=== PATIENT | female | born 1955 ===

== ENCOUNTER → 2022-01-14 14:37 | Outpatient (BNVA) | payer MEDICARE, OTHER, SELFPAY | PROVIDERS: PCP Internal Medicine; Visit Provider Psychiatry & Neurology Neurology | DX: Z13.89 Encounter for screening for other disorder (principal) | CPT/HCPCS: Q3014 ==

== ENCOUNTER 2023-08-08 15:09 | Emergency (ER) | payer OTHER, SELFPAY ==
--- NOTE | ~2023-08-08 | US_ITS ---
EXAMINATION: US VENOUS ULTRASOUND WITH DOPPLER LOWER EXTREMITY, BILATERAL CLINICAL INFORMATION: Edema COMPARISON: None available. TECHNIQUE: Ultrasound of the deep veins is performed from the hip to the calf with compression sonography and color and pulse Doppler assessment. Spectral analysis with color-flow imaging is performed. FINDINGS: RIGHT: There is normal venous compression and respiratory variation and augmented flow. The visualized common femoral vein, superficial femoral vein, profunda femoral vein, popliteal vein, and the trifurcation region shows no evidence of deep venous thrombosis. The peroneal vein was not identified. A 3.4 x 0.8 x 2.4 center cyst in the popliteal fossa. Subcutaneous edema. LEFT: There is normal venous compression and respiratory variation and augmented flow. The visualized common femoral vein, superficial femoral vein, profunda femoral vein, popliteal vein, and the trifurcation region shows no evidence of deep venous thrombosis. The peroneal vein was not identified sonographically. A 3.9 x 0.7 x 2.2 cm cyst in the left popliteal fossa which may reflect a Guajardo's cyst. Subcutaneous edema. If the patient's symptoms persist, followup ultrasound in 5 days 7 days might be of value to exclude proximal propagation from a non-visualized calf vein. US/US venous duplex LE BI IMPRESSION: 1. No DVT demonstrated in the bilateral lower extremities, however the peroneal veins were not identified sonographically limiting assessment. 2. Bilateral popliteal fossa cysts measuring 3.4 cm on the right and 3.9 cm on the left which may reflect a Guajardo's cyst. 3. Subcutaneous edema.
--- NOTE | ~2023-08-08 | XR_ITS ---
EXAMINATION: XR CHEST CLINICAL INFORMATION: Shortness of breath COMPARISON: None available. TECHNIQUE: Frontal view of the chest was obtained. FINDINGS: vascularity. LUNGS: Lungs are clear. No pneumothorax is seen. BONES: Bony skeleton is intact. XR/XR chest 1V IMPRESSION: Normal chest x-ray.
[2023-08-08 15:28] VITALS: BP 153/66; PULSE 108; RESP 20; TEMP 36.4; O2SAT 99; BMI 40.6
--- NOTE | 2023-08-08 15:28 | ED.GENADULT ---
HPI - General Adult General Chief complaint: Extremity Problem Stated complaint: bilateral leg swelling and redness Time Seen by Provider: 08/08/23 16:59 Source: patient Mode of arrival: ambulatory History of Present Illness HPI narrative: 67-year-old female who has a history of diabetes, COPD, GEORGETTE and recently diagnosed with RA and started on methotrexate last week comes into the emergency room at the request of her primary care provider due to abnormal labs. Patient denies any shortness of breath, she denies any chest pain/discomfort/palpitations, she denies any nausea or vomiting but does describe some unexplained weight loss but otherwise states that she has been having normal bowel movements and denies any dysuria. She states that her bilateral lower extremities have progressively worsened over the past 2 months. She is aware that she had anemia starting in June but denies blood in her stool, she denies vomiting any blood. Related Data Home Medications Medication Instructions Recorded Confirmed albuterol sulfate 90 mcg/actuation 0 mcg inhalation 01/14/22 04/08/22 aerosol inhaler cholecalciferol (vitamin D3) 50 50 mcg PO DAILY 01/14/22 04/08/22 mcg (2,000 unit) capsule levothyroxine 137 mcg tablet 137 mcg PO DAILY 01/14/22 04/08/22 lisinopril 10 1 tab PO DAILY 01/14/22 04/08/22 mg-hydrochlorothiazide 12.5 mg tablet metformin 500 mg tablet 500 mg PO DAILY 01/14/22 04/08/22 pravastatin 40 mg tablet 40 mg PO DAILY 01/14/22 04/08/22 Previous Rx's Medication Instructions Recorded topiramate 50 mg tablet 50 mg PO BID 90 days #180 tabs 04/08/22 furosemide 20 mg tablet (Lasix) 20 mg PO Q OTHER DAY #10 tabs 08/08/23 Allergies Allergy/AdvReac Type Severity Reaction Status Date / Time codeine Allergy Severe Anaphylaxis Verified 04/08/22 08:42 ibuprofen AdvReac Mild Hives Verified 04/08/22 08:42 tramadol AdvReac Mild Hives Verified 04/08/22 08:42 Review of Systems Review of Systems: Pertinent positives and negatives as stated in HPI PMF Past Medical History Source: nursing notes reviewed Medical History Obstructive sleep apnea of adult Thyroid activity decreased Cervical spondylosis Migraine headache without aura Diabetes COPD (chronic obstructive pulmonary disease) Surgical History H/O: hysterectomy Social History Social History Alcohol intake: never Patient Tobacco Use Status: Former Tobacco user Quit Date: 2021 Smoked in Last 30 Days: Yes Use of substances other than those prescribed or required for medical reasons: No Advance Directives: No Advance Directives Information Provided: Yes Physical Exam ED Vital Signs: Vital Signs - 24 hr 08/08/23 15:28 08/08/23 19:30 Temperature 97.5 F 98.5 F Pulse Rate 108 H 95 Respiratory Rate 20 20 Blood Pressure 153/66 H 131/64 Pulse Oximetry 99 100 Oxygen Delivery Method Room Air Room Air BMI result Body Mass Index 40.6 VITAL SIGNS: Reviewed. GENERAL: Elevated BMI, Well developed, well nourished, in no acute distress. HEAD: Normocephalic/atraumatic EYES: PERRLA, EOMI EARS: Ext canals without abnormality, TMs non-bulging and non-erythematous NOSE: Nares patent bilateral OROPHARYNX: no oral lesions noted, posterior pharynx clear NECK: Supple, no adenopathy LUNGS: Bibasilar rales without tachypnea, good inspiratory effort. SpO2<99> CARDIOVASCULAR: Regular rate and rhythm without noted murmurs, no JVD but significant pitting edema up to the knees ABDOMEN: Soft, non-tender, non-distended with bowel sounds. MUSCULOSKELETAL: No tenderness, deformities, or effusions noted on gross inspection. EXTREMITIES: No cyanosis, clubbing or edema. LEFT ANKLE: Small wound noted to left medial malleolus without purulence drainage suspect may be chronic in nature SKIN: Inspection of the skin reveals no rashes NEUROLOGIC: Alert and oriented x 4. Strength and sensation to light touch were grossly intact x 4. Course Course Course Narrative: RME performed by Vicki Prabhakar PA-C. Patient is a 67 year old assigned female at presenting to the emergency department with bilateral lower leg swelling and redness. Labs ordered. Patient placed back in the waiting room pending room availability and results. Medications Administered Discontinued Medications Generic Name Dose Route Start Last Admin Trade Name Freq PRN Reason Stop Dose Admin Acetaminophen 975 mg 08/08/23 19:42 08/08/23 20:15 Acetaminophen 325 Mg Tablet PO 08/08/23 19:43 Not Given ONCE ONE Medical Decision Making Medical Decision Making [facility] Narrative: 1736: 67-year-old female with history and clinical presentation that I suspect is related to an driven by underlying anemia which is likely increased cardiac work resulting in fluid overload but patient does not describe any increase in shortness of breath nor does she describe any chest pain. EKG is abnormal with marked ST abnormalities throughout anterolateral leads consistent with LVH especially when patient denies any chest pain/discomfort/palpitations. Do not suspect that appearance of bilateral lower extremities is secondary to methotrexate use as patient reports that she was experiencing this prior to initiation of the methotrexate. In addition, patient also had anemia prior to initiation of the methotrexate. I reviewed all investigations and hematologic indices are significant for a leukocytosis and left shift but patient is afebrile and is not endorsing any symptoms to suggest an infectious etiology in suspect this may be a stress response or related with recent initiation of methotrexate. Patient is also noted to be normocytic anemia, this could be of chronic disease. Coagulation studies are within normal limits. Chemistry indices demonstrate an IRIS and otherwise there are no electrolyte or liver enzyme derangements. However, high sensitivity troponin is noted to be elevated at 35.2 but suspect this may be demand related due to underlying anemia as patient denies any symptoms of chest pain/discomfort/palpitations. In addition, BNP is noted to be mildly elevated which is consistent with clinical findings of bibasilar rales as well as bilateral lower extremity edema but patient is neither tachypneic nor is she hypoxic. CRP and ESR are elevated but again this is not out the around the possibility given her recent diagnosis of RA with initiation of methotrexate. We will repeat the high sensitivity troponin and I will perform a guaiac stool and if positive suggestive alternative etiology of anemia than ACD. Chest x-ray negative for infiltrate or evidence of venous congestion. Venous duplex is negative for evidence to suggest DVT. Broth Setter- Carlos Enrique for MARÍA, guaiac negative 2032: On further investigation via the [employer] system it appears that patient's chemistry values are consistent with her known CKD and patient has normocytic anemia consistent with anemia of chronic disease. 2208: On evaluation of serial troponins they are essentially flat in comparison arguing against any evidence of NSTEMI/ subendocardial injury . My interpretation is that these changes are likely chronic in nature and patient is otherwise discharged home, she did have Billy wraps applied to bilateral lower extremities to help with pain control and stasis. Will also discharge patient on a small dose of Lasix to bridge her until she follows up with her primary care doctor. Patient is neither hypoxic, nor is she tachypneic and vital signs are otherwise stable. She is free dyspnea or chest pain. Differential Diagnosis Differential Diagnoses: The differential diagnosis associated with the presentation includes Please see the discussion above Admission/Observation Consideration of admission/observation: Escalation of care including admission/observation considered Please see the discussion above Lab Data MDM Lab Attestation statement: I reviewed the patient's lab results. Please see the discussion above 08/08/23 16:14 08/08/23 16:14 Labs: Lab Results 08/08/23 08/08/23 08/08/23 Range/Units 16:14 18:14 19:25 WBC 11.3 H (4.8-10.8) X10*3/uL RBC 3.02 L (4.20-5.50) X10*6/uL Hgb 7.8 L (12.0-16.0) g/dl Hct 25.2 L (37.0-47.0) % MCV 83.4 (80.0-98.0) fL MCH 25.8 L (27.0-33.0) pg MCHC 31.0 (31.0-35.0) g/dl RDW 14.4 (11.0-16.0) % Plt Count 324 (160-400) X10*3/uL MPV 9.6 (9.4-12.3) fL Immature Gran % (Auto) 0.6 H (0.0-0.4) % Neut % (Auto) 83.0 H (45-73) % Lymph % (Auto) 14.4 L (20-40) % [place] % (Auto) 1.0 L (2-11) % Eos % (Auto) 0.9 (0-4) % Baso % (Auto) 0.1 (0-2) % Lymph # (Auto) 1.6 (1.2-4.9) X10*3/uL [place] # (Auto) 0.1 (0.1-1.2) X10*3/uL Eos # (Auto) 0.1 (0.0-0.4) X10*3/uL Baso # (Auto) 0.0 (0.0-0.2) X10*3/uL Abs Immat Gran (auto) 0.07 H (0.00-0.03) X10*3/uL Absolute Neuts (auto) 9.3 H (2.0-8.3) x10*3/uL Absolute Nucleated RBC 0.000 (0.0-0.012) X10*3/uL Nucleated RBC % (auto) 0.0 (0.0-0.2) /100WBC ESR 117 H (0-20) MM/HR PT 11.8 (11.1-13.3) SEC INR 1.0 (0.9-1.1) Sodium 134 L (135-145) mmol/L Potassium 3.5 (3.3-5.1) mmol/L Chloride 101 (96-108) mmol/L Carbon Dioxide 26 (22-29) mmol/L Anion Gap 11 L (12-20) BUN 30 H (9-16) mg/dL Creatinine 1.78 H (0.5-1.4) mg/dL Estim Creat Clear Calc 35.3 Estimated GFR 28 Random Glucose 120 H (60-115) mg/dL Lactic Acid 1.6 (0.5-2.0) mmol/L Calcium 9.4 (8.4-10.2) mg/dL Magnesium 2.2 (1.6-2.6) mg/dL Total Bilirubin 0.2 (0.0-1.0) mg/dL AST 13 (5-31) U/L ALT 15 (0-31) U/L Alkaline Phosphatase 97 (39-117) U/L Troponin I High Sens 35.2 H (<3.5-17.0) ng/L C-Reactive Protein 14.88 H (< or = 0.50) mg/dL B-Natriuretic Peptide 135 H (<100) pg/mL Total Protein 7.3 (6.5-8.0) g/dL Albumin 3.5 (3.5-5.0) g/dL Urine Color Yellow Urine Appearance Cloudy Urine pH 5.0 (5.0-9.0) Ur Specific [place] 1.015 (1.005-1.025) Urine Protein Negative (Neg-Trace) mg/dL Urine Glucose (UA) Negative (Negative) mg/dL Urine Ketones Negative (Negative) mg/dL Urine Blood Negative (Negative) Urine Nitrite Negative (Negative) Ur Leukocyte Esterase Trace H (Negative) Urine RBC 0-2 (0-2) /HPF Urine WBC 11-20 H (0-5) /HPF Ur Squamous Epith Cells 11-20 (0-2) /HPF Urine Bacteria Trace (None Seen) Hyaline Casts 6-10 (0-2) /LPF Stool Occult Blood (NEGATIVE) Influenza Type A (PCR) NEGATIVE (Negative) Influenza Type B (PCR) NEGATIVE (Negative) RSV RNA Qual (PCR) NEGATIVE (Negative) SARS-CoV-2 RNA (RT-PCR) NEGATIVE (Negative) Blood Type A Positive Antibody Screen NEGATIVE 08/08/23 08/08/23 Range/Units 20:02 21:17 WBC (4.8-10.8) X10*3/uL RBC (4.20-5.50) X10*6/uL Hgb (12.0-16.0) g/dl Hct (37.0-47.0) % MCV (80.0-98.0) fL MCH (27.0-33.0) pg MCHC (31.0-35.0) g/dl RDW (11.0-16.0) % Plt Count (160-400) X10*3/uL MPV (9.4-12.3) fL Immature Gran % (Auto) (0.0-0.4) % Neut % (Auto) (45-73) % Lymph % (Auto) (20-40) % [place] % (Auto) (2-11) % Eos % (Auto) (0-4) % Baso % (Auto) (0-2) % Lymph # (Auto) (1.2-4.9) X10*3/uL [place] # (Auto) (0.1-1.2) X10*3/uL Eos # (Auto) (0.0-0.4) X10*3/uL Baso # (Auto) (0.0-0.2) X10*3/uL Abs Immat Gran (auto) (0.00-0.03) X10*3/uL Absolute Neuts (auto) (2.0-8.3) x10*3/uL Absolute Nucleated RBC (0.0-0.012) X10*3/uL Nucleated RBC % (auto) (0.0-0.2) /100WBC ESR (0-20) MM/HR PT (11.1-13.3) SEC INR (0.9-1.1) Sodium (135-145) mmol/L Potassium (3.3-5.1) mmol/L Chloride (96-108) mmol/L Carbon Dioxide (22-29) mmol/L Anion Gap (12-20) BUN (9-16) mg/dL Creatinine (0.5-1.4) mg/dL Estim Creat Clear Calc Estimated GFR Random Glucose (60-115) mg/dL Lactic Acid (0.5-2.0) mmol/L Calcium (8.4-10.2) mg/dL Magnesium (1.6-2.6) mg/dL Total Bilirubin (0.0-1.0) mg/dL AST (5-31) U/L ALT (0-31) U/L Alkaline Phosphatase (39-117) U/L Troponin I High Sens 37.2 H (<3.5-17.0) ng/L C-Reactive Protein (< or = 0.50) mg/dL B-Natriuretic Peptide (<100) pg/mL Total Protein (6.5-8.0) g/dL Albumin (3.5-5.0) g/dL Urine Color Urine Appearance Urine pH (5.0-9.0) Ur Specific [place] (1.005-1.025) Urine Protein (Neg-Trace) mg/dL Urine Glucose (UA) (Negative) mg/dL Urine Ketones (Negative) mg/dL Urine Blood (Negative) Urine Nitrite (Negative) Ur Leukocyte Esterase (Negative) Urine RBC (0-2) /HPF Urine WBC (0-5) /HPF Ur Squamous Epith Cells (0-2) /HPF Urine Bacteria (None Seen) Hyaline Casts (0-2) /LPF Stool Occult Blood NEGATIVE (NEGATIVE) Influenza Type A (PCR) (Negative) Influenza Type B (PCR) (Negative) RSV RNA Qual (PCR) (Negative) SARS-CoV-2 RNA (RT-PCR) (Negative) Blood Type Antibody Screen Independent Interpretation I performed an independent interpretation of an: EKG Interpretation: Normal sinus rhythm, HR-93, significant ST depressions throughout anterolateral leads that is otherwise asymptomatic, no STEMI, ME/QRS/QTC is within normal limits. Radiology Impression Discussion of test interpretation with radiology: I have reviewed the radiologist's reading. Radiologist Impression: Please see the discussion above Chronic Conditions Patient?s care impacted by: Diabetes Critical Care Time Critical Care Time Critical Care Time: Yes Total Critical Care Time: 60 Attestation: I personally attest to this time spent taking care of the patient. Discharge Plan Discharge Clinical Impression: Bilateral lower extremity edema, Anemia in chronic kidney disease (CKD), Rheumatoid arthritis, CHF (congestive heart failure) Patient Disposition: Home, Self-Care Instructions: Heart Failure (ED), Chronic Kidney Disease (ED), Leg Edema (ED) Additional Instructions: 1. Your workup today essentially demonstrated stable labs when compared to prior values. You yourself have been otherwise asymptomatic with the exception of your recent diagnosis of rheumatoid arthritis for which you have been started on a medication that does not appear to be adversely affecting you. 2. Please follow-up with your primary care doctor by calling the office 1st thing in the morning and setting up an appointment for re-evaluation and further outpatient management. Return to the ER if you are experiencing any worsening of your symptoms, I will be prescribing you a small dose of Lasix (furosemide) which will help in the removal of the fluid from your lower extremities. Prescriptions: New furosemide [Lasix] 20 mg tablet 20 mg PO Q OTHER DAY Qty: 10 0RF No Action albuterol sulfate 90 mcg/actuation HFA aerosol inhaler 0 mcg inhalation metformin 500 mg tablet 500 mg PO DAILY lisinopril-hydrochlorothiazide 10-12.5 mg tablet 1 tab PO DAILY pravastatin 40 mg tablet 40 mg PO DAILY levothyroxine 137 mcg tablet 137 mcg PO DAILY cholecalciferol (vitamin D3) 50 mcg (2,000 unit) capsule 50 mcg PO DAILY topiramate 50 mg tablet 50 mg PO BID 90 Days Qty: 180 6RF Referrals: Angel Goldsmith MD [Primary Care Provider] -
--- NOTE | 2023-08-08 15:29 | ECG_ITS ---
Test Reason : LEG SWELLING Blood Pressure : / mmHG Vent. Rate : 093 BPM Atrial Rate : 093 BPM P-R Int : 166 ms QRS Dur : 098 ms QT Int : 358 ms P-R-T Axes : 052 010 168 degrees QTc Int : 445 ms Normal sinus rhythm Left ventricular hypertrophy with repolarization abnormality ( Juan Manuel product ) Marked ST abnormality, possible anterior subendocardial injury Abnormal ECG No previous ECGs available Referred By: Vicki Prabhakar Electronically Signed By:BRYAN ROLAND MD
[2023-08-08 16:22] LABS: MANUAL DIFF FLAG NO
[2023-08-08 16:30] LABS: Appearance Urine Cloudy; Color Urine Yellow; Glucose Urine UA Negative (Negative); Leukocyte Esterase Urine Trace (Negative); Nitrite Urine Negative (Negative); Specific Gravity - Urine 1.015 (1.005-1.025); UMIC TRIGGER UACC YES; Urine Blood Negative (Negative); Urine Ketones Negative (Negative); Urine Protein Negative (Neg-Trace)
[2023-08-08 16:31] LABS: Prothrombin Time 11.8 SEC (11.1-13.3)
[2023-08-08 16:34] LABS: Basophils Percent Auto 0.1 % (0-2); Eosinophils Absolute Auto 0.1 X10*3/uL (0.0-0.4); Eosinophils Percent Auto 0.9 % (0-4); Hematocrit 25.2 % (37.0-47.0); Hemoglobin 7.8 g/dl (12.0-16.0); Imm Gran Abs Auto 0.07 X10*3/uL (0.00-0.03); Imm Gran Pct Auto 0.6 % (0.0-0.4); Lymphocytes Absolute Auto 1.6 X10*3/uL (1.2-4.9); Lymphocytes Percent Auto 14.4 % (20-40); Mean Corpuscular Hemoglobin 25.8 pg (27.0-33.0); Mean Corpuscular Volume 83.4 fL (80.0-98.0); Mean Platelet Volume 9.6 fL (9.4-12.3); Monocytes Absolute Auto 0.1 X10*3/uL (0.1-1.2); Neutrophils Absolute Auto 9.3 x10*3/uL (2.0-8.3); Platelet Count 324 X10*3/uL (160-400); Red Blood Count 3.02 X10*6/uL (4.20-5.50); Red Cell Distribution Width 14.4 % (11.0-16.0); White Blood Count 11.3 X10*3/uL (4.8-10.8)
[2023-08-08 16:42] LABS: Alanine Aminotransferase 15 U/L (0-31); Albumin Level 3.5 g/dL (3.5-5.0); Alkaline Phosphatase 97 U/L (39-117); Anion Gap 11 (12-20); Aspartate Amino Transferase 13 U/L (5-31); Bilirubin Total 0.2 mg/dL (0.0-1.0); Blood Urea Nitrogen 30 mg/dL (9-16); C Reactive Protein 14.88 mg/dL (< or = 0.50); Calcium 9.4 mg/dL (8.4-10.2); Carbon Dioxide 26 mmol/L (22-29); Chloride 101 mmol/L (96-108); Creatinine Clr Calc Pharmacy 35.3; Estimated Glomerular Filt Rate 28; Glucose Random 120 mg/dL (60-115); Magnesium 2.2 mg/dL (1.6-2.6); Potassium 3.5 mmol/L (3.3-5.1); Sodium 134 mmol/L (135-145); Total Protein 7.3 g/dL (6.5-8.0)
[2023-08-08 16:47] LABS: B Type Natriuretic Peptide 135 pg/mL (<100); Bacteria Urine Trace (None Seen); RBC Urine 0-2 /HPF (0-2); UACC Culture Trigger YES
[2023-08-08 16:49] LABS: Troponin-I High Sensitivity 35.2 ng/L (<3.5-17.0)
[2023-08-08 17:10] LABS: Influenza A PCR NEGATIVE (Negative); Influenza B PCR NEGATIVE (Negative); Resp Syncy Virus RNA Qual PCR NEGATIVE (Negative); SARS COV2 PCR INHOUSE NEGATIVE (Negative)
[2023-08-08 17:25] LABS: Erythrocyte Sedimentation Rate 117 MM/HR (0-20)
--- NOTE | 2023-08-08 18:26 | PC.NURSE ---
pt with ultrasound at bedside
[2023-08-08 18:39] LABS: Lactic Acid 1.6 mmol/L (0.5-2.0)
[2023-08-08 19:30] VITALS: BP 131/64; PULSE 95; RESP 20; TEMP 36.9; O2SAT 100
[2023-08-08 20:06] LABS: OBS Int Ctl Valid YES; OBS1 NEGATIVE (NEGATIVE)
[2023-08-08 21:43] LABS: Troponin-I High Sensitivity 37.2 ng/L (<3.5-17.0)
== END 2023-08-08 22:24 | disposition home or self-care (01) ==
PROVIDERS: Physician Assistant Medical; Emergency Provider Student in an Organized Health Care Education/Training Program; PCP Internal Medicine
DX: R60.0 Localized edema (principal); E11.22 Type 2 diabetes mellitus with diabetic chronic kidney disease; I13.0 Hypertensive heart and chronic kidney disease with heart failure and stage 1 through stage 4 chronic kidney disease, or unspecified chronic kidney disease; N18.30 Chronic kidney disease, stage 3 unspecified; I50.9 Heart failure, unspecified; D63.1 Anemia in chronic kidney disease; M06.9 Rheumatoid arthritis, unspecified; J44.9 Chronic obstructive pulmonary disease, unspecified; E66.9 Obesity, unspecified; Z68.41 Body mass index [BMI] 40.0-44.9, adult; Z87.891 Personal history of nicotine dependence; Z79.84 Long term (current) use of oral hypoglycemic drugs; Z20.822 Contact with and (suspected) exposure to COVID-19; Z20.828 Contact with and (suspected) exposure to other viral communicable diseases
CPT/HCPCS: 0241U; 36415; 71045; 80053; 81001; 82272; 83605; 83735; 83880; 84484; 85025; 85610; 85652; 86140; 86850; 86900; 86901; 87040; 87086; 93005; 93970; 99284

== ENCOUNTER 2023-08-18 12:08 | Emergency (ER) | payer MEDICARE, SELFPAY ==
[2023-08-18 12:41] VITALS: BP 150/51; PULSE 107; RESP 18; TEMP 36.4; O2SAT 96; BMI 40.5
--- NOTE | 2023-08-18 12:44 | ED_ITS ---
HPI - General Adult General Chief complaint: General Medical Stated complaint: swelling of both legs Related Data Home Medications Medication Instructions Recorded Confirmed albuterol sulfate 90 mcg/actuation 1 - 2 puff inhalation Q4H PRN 01/14/22 08/19/23 aerosol inhaler Shortness Of Breath cholecalciferol (vitamin D3) 50 50 mcg PO DAILY 01/14/22 08/19/23 mcg (2,000 unit) capsule levothyroxine 137 mcg tablet 137 mcg PO DAILY 01/14/22 08/19/23 lisinopril 10 1 tab PO DAILY 01/14/22 08/19/23 mg-hydrochlorothiazide 12.5 mg tablet metformin 500 mg tablet 500 mg PO DAILY 01/14/22 08/19/23 pravastatin 40 mg tablet 40 mg PO DAILY 01/14/22 08/19/23 ascorbic acid (vitamin C) 500 mg 500 mg PO DAILY 08/19/23 08/19/23 tablet (Vitamin C) ferrous sulfate 325 mg (65 mg 325 mg PO DAILY 08/19/23 08/19/23 iron) tablet folic acid 1 mg tablet 1 mg PO DAILY 08/19/23 08/19/23 methotrexate sodium 2.5 mg tablet 15 mg PO WE@0900 08/19/23 08/19/23 Previous Rx's Medication Instructions Recorded furosemide 20 mg tablet (Lasix) 20 mg PO Q OTHER DAY #10 tabs 08/08/23 Allergies Allergy/AdvReac Type Severity Reaction Status Date / Time codeine Allergy Severe Anaphylaxis Verified 08/18/23 12:40 ibuprofen AdvReac Mild Hives Verified 08/18/23 12:40 tramadol AdvReac Mild Hives Verified 08/18/23 12:40 [facility] Past Medical History Medical History (Updated 08/23/23 @ 11:40 by Parul Cardona NP) Hypertension Obstructive sleep apnea of adult Thyroid activity decreased Cervical spondylosis Migraine headache without aura Diabetes COPD (chronic obstructive pulmonary disease) Surgical History H/O: hysterectomy Social History Social History Household Members: None Housing: Apartment Do you presently have visiting nurse or other home services: No Alcohol intake: never Comment: Supervise assist Patient Tobacco Use Status: Former Tobacco user Quit Date: 2021 Smoked in Last 30 Days: No e-Cigarette/Vaping Use: Never Used Patient Interested in Nicotine Replacement: No Patient Given Instructions on How to Stop Smoking: No Second Hand Smoke Exposure: No Use of substances other than those prescribed or required for medical reasons: No Currently Displaying Signs/Symptoms of Drug Intoxication Withdrawal: No Any prior treatment program specific to substance use: No Have you been hit, kicked, punched, or otherwise hurt by someone within the past year? If so, by whom?: No Do you feel safe in your current relationship?: No Current Relationship Is there a partner from a previous relationship who is making you feel unsafe now?: No Are you made to feel afraid or neglected: No Advance Directives: No Advance Directives Information Provided: No Advance Directives on File: No Do you have thoughts of harming others: None Do you have a plan to hurt others: No Plan Recently lost weight without trying: No Eating poorly because of decreased appetite: No Nutrition Risks: No Nutritional Risk Patient : No : No Poor oral hygiene: No service: No Physical Exam ED Vital Signs: BMI result Body Mass Index 40.5 Course Course Course Narrative: This is a rapid medical exam: Additional HPI, ROS, PE not included below will be deferred to primary provider. Patient is a 67-year-old female presenting to the emergency department with complaint of bilateral leg swelling since June, worsening over past 3 days. She has blisters primarily to left leg, some on right leg which or leaking fluid. Denies fever. Unable to visualize in triage as patient's pants extremely tight. Plan: labs including cultures Medical Decision Making Lab Data 08/18/23 13:44 08/18/23 13:44 Labs: Lab Results 08/18/23 Range/Units 13:44 WBC 5.4 (4.8-10.8) X10*3/uL RBC 2.77 L (4.20-5.50) X10*6/uL Hgb 7.3 L (12.0-16.0) g/dl Hct 23.5 L (37.0-47.0) % MCV 84.8 (80.0-98.0) fL MCH 26.4 L (27.0-33.0) pg MCHC 31.1 (31.0-35.0) g/dl RDW 14.8 (11.0-16.0) % Plt Count 210 D (160-400) X10*3/uL MPV 9.0 L (9.4-12.3) fL Immature Gran % (Auto) 0.2 (0.0-0.4) % Neut % (Auto) 67.6 (45-73) % Lymph % (Auto) 26.1 (20-40) % [place] % (Auto) 3.3 (2-11) % Eos % (Auto) 2.6 (0-4) % Baso % (Auto) 0.2 (0-2) % Lymph # (Auto) 1.4 (1.2-4.9) X10*3/uL [place] # (Auto) 0.2 (0.1-1.2) X10*3/uL Eos # (Auto) 0.1 (0.0-0.4) X10*3/uL Baso # (Auto) 0.0 (0.0-0.2) X10*3/uL Abs Immat Gran (auto) 0.01 (0.00-0.03) X10*3/uL Absolute Neuts (auto) 3.7 (2.0-8.3) x10*3/uL Absolute Nucleated RBC 0.000 (0.0-0.012) X10*3/uL Nucleated RBC % (auto) 0.0 (0.0-0.2) /100WBC Sodium 135 (135-145) mmol/L Potassium 3.9 (3.3-5.1) mmol/L Chloride 101 (96-108) mmol/L Carbon Dioxide 26 (22-29) mmol/L Anion Gap 12 (12-20) BUN 23 H (9-16) mg/dL Creatinine 1.50 H (0.5-1.4) mg/dL Estim Creat Clear Calc 41.8 Estimated GFR 35 Random Glucose 147 H (60-115) mg/dL Calcium 9.3 (8.4-10.2) mg/dL Total Bilirubin 0.3 (0.0-1.0) mg/dL AST 19 (5-31) U/L ALT 32 H (0-31) U/L Alkaline Phosphatase 73 (39-117) U/L Total Protein 7.1 (6.5-8.0) g/dL Albumin 3.5 (3.5-5.0) g/dL Discharge Plan Discharge Clinical Impression: Lower extremity edema Patient Disposition: Left W/O Completing Treatment Prescriptions: No Action furosemide [Lasix] 20 mg tablet 20 mg PO Q OTHER DAY Qty: 10 0RF methotrexate sodium 2.5 mg tablet 15 mg PO WE@0900 folic acid 1 mg tablet 1 mg PO DAILY ascorbic acid (vitamin C) [Vitamin C] 500 mg Tablet 500 mg PO DAILY ferrous sulfate 325 mg (65 mg iron) Tablet 325 mg PO DAILY albuterol sulfate 90 mcg/actuation HFA aerosol inhaler 1 - 2 puff inhalation Q4H PRN (Reason: Shortness Of Breath) metformin 500 mg tablet 500 mg PO DAILY lisinopril-hydrochlorothiazide 10-12.5 mg tablet 1 tab PO DAILY pravastatin 40 mg tablet 40 mg PO DAILY levothyroxine 137 mcg tablet 137 mcg PO DAILY cholecalciferol (vitamin D3) 50 mcg (2,000 unit) capsule 50 mcg PO DAILY Discharge Date/Time: 08/18/23 19:30
[2023-08-18 13:48] LABS: MANUAL DIFF FLAG NO
[2023-08-18 13:53] LABS: Basophils Percent Auto 0.2 % (0-2); Eosinophils Absolute Auto 0.1 X10*3/uL (0.0-0.4); Eosinophils Percent Auto 2.6 % (0-4); Hematocrit 23.5 % (37.0-47.0); Hemoglobin 7.3 g/dl (12.0-16.0); Imm Gran Abs Auto 0.01 X10*3/uL (0.00-0.03); Imm Gran Pct Auto 0.2 % (0.0-0.4); Lymphocytes Absolute Auto 1.4 X10*3/uL (1.2-4.9); Lymphocytes Percent Auto 26.1 % (20-40); Mean Corpuscular HGB Conc 31.1 g/dl (31.0-35.0); Mean Corpuscular Hemoglobin 26.4 pg (27.0-33.0); Mean Corpuscular Volume 84.8 fL (80.0-98.0); Monocytes Absolute Auto 0.2 X10*3/uL (0.1-1.2); Monocytes Percent Auto 3.3 % (2-11); Neutrophils Absolute Auto 3.7 x10*3/uL (2.0-8.3); Neutrophils Percent Auto 67.6 % (45-73); Platelet Count 210 X10*3/uL (160-400); Red Blood Count 2.77 X10*6/uL (4.20-5.50); Red Cell Distribution Width 14.8 % (11.0-16.0); White Blood Count 5.4 X10*3/uL (4.8-10.8)
[2023-08-18 14:09] LABS: Alanine Aminotransferase 32 U/L (0-31); Albumin Level 3.5 g/dL (3.5-5.0); Alkaline Phosphatase 73 U/L (39-117); Anion Gap 12 (12-20); Aspartate Amino Transferase 19 U/L (5-31); Bilirubin Total 0.3 mg/dL (0.0-1.0); Blood Urea Nitrogen 23 mg/dL (9-16); Calcium 9.3 mg/dL (8.4-10.2); Carbon Dioxide 26 mmol/L (22-29); Chloride 101 mmol/L (96-108); Creatinine Clr Calc Pharmacy 41.8; Estimated Glomerular Filt Rate 35; Glucose Random 147 mg/dL (60-115); Potassium 3.9 mmol/L (3.3-5.1); Sodium 135 mmol/L (135-145); Total Protein 7.1 g/dL (6.5-8.0)
== END 2023-08-18 19:30 | disposition left against medical advice (07) ==
PROVIDERS: Registered Nurse Emergency; Emergency Provider Emergency Medicine; PCP Internal Medicine
DX: R60.0 Localized edema (principal); Z87.891 Personal history of nicotine dependence; Z79.899 Other long term (current) drug therapy
CPT/HCPCS: 36415; 80053; 85025; 87040; 99281; 99283

== ENCOUNTER 2023-08-19 07:14 | Inpatient (IN) | payer MEDICARE, SELFPAY ==
--- NOTE | ~2023-08-19 | XR_ITS ---
EXAMINATION: XR CHEST CLINICAL INFORMATION: Swelling of legs. COMPARISON: July 2023 TECHNIQUE: Frontal view of the chest was obtained. FINDINGS: No significant abnormality is noted involving the heart, lungs, mediastinum, bony thorax or soft tissues. XR/XR chest 1V IMPRESSION: Unremarkable examination.
--- NOTE | 2023-08-19 07:23 | ED.GENADULT ---
HPI - General Adult General Chief complaint: Extremity Problem Stated complaint: leg pain Time Seen by Provider: 08/19/23 07:23 Source: patient Mode of arrival: ambulatory Limitations: no limitations History of Present Illness HPI narrative: 67 year old female hx of thyroid disease , GEORGETTE, diabetes, COPD, migrane presents w/ LLE swelling, pain and redness worsening since June. Patient reports she was seen here at the end of July, was prescribed Lasix daily however she does not feel as though this is making much of a difference. She reports that the area is red, hot and very painful to the touch and now has some blisters forming. She reports this is worsening since her last visit. Patient tells me last time she was here she had a venous duplex done of her left lower extremity which showed no blood clot. Patient reports associated fatigue and malaise. Denies fevers, chills, numbness, tingling, chest pain, shortness of breath Related Data Home Medications Medication Instructions Recorded Confirmed albuterol sulfate 90 mcg/actuation 0 mcg inhalation 01/14/22 04/08/22 aerosol inhaler cholecalciferol (vitamin D3) 50 50 mcg PO DAILY 01/14/22 04/08/22 mcg (2,000 unit) capsule levothyroxine 137 mcg tablet 137 mcg PO DAILY 01/14/22 04/08/22 lisinopril 10 1 tab PO DAILY 01/14/22 04/08/22 mg-hydrochlorothiazide 12.5 mg tablet metformin 500 mg tablet 500 mg PO DAILY 01/14/22 04/08/22 pravastatin 40 mg tablet 40 mg PO DAILY 01/14/22 04/08/22 Previous Rx's Medication Instructions Recorded topiramate 50 mg tablet 50 mg PO BID 90 days #180 tabs 04/08/22 furosemide 20 mg tablet (Lasix) 20 mg PO Q OTHER DAY #10 tabs 08/08/23 Allergies Allergy/AdvReac Type Severity Reaction Status Date / Time codeine Allergy Severe Anaphylaxis Verified 08/18/23 12:40 ibuprofen AdvReac Mild Hives Verified 08/18/23 12:40 tramadol AdvReac Mild Hives Verified 08/18/23 12:40 Review of Systems Review of Systems: Constitutional : No Weight loss, No Fever, No Chills, No Fatigue, No Malaise ENT/Mouth : No sore throat, No Rhinorrhea Eyes: No Eye Pain, No Swelling, No Redness Cardiovascular : No Chest Pain, No SOB, No Dyspnea on Exertion, No Orthopnea, No Edema, No Palpitations Respiratory : No Cough, No Sputum, No Wheezing Gastrointestinal : No Nausea, No Vomiting, No Diarrhea, No Constipation, No abdominal Pain, No Hematochezia, No Melena Genitourinary : No Dysuria, No Urinary Frequency, No Hematuria, Musculoskeletal : No joint pain, No Myalgias, No Joint Swelling, + leg pain Skin : No Skin Lesions, No rash Neuro : No Weakness, No Numbness, No Dizziness, No Headache Psych : No Anxiety/Panic, No Depression All other systems reviewed and are negative Yes all other systems are reviewed and are negative [facility] Past Medical History Attestation statement: The following information was validated with the patient. Source: old records reviewed and nursing notes reviewed Medical History (Updated 08/19/23 @ 09:33 by Huey Healy MD) Hypertension Obstructive sleep apnea of adult Thyroid activity decreased Cervical spondylosis Migraine headache without aura Diabetes COPD (chronic obstructive pulmonary disease) Surgical History H/O: hysterectomy Social History Social History Alcohol intake: never Patient Tobacco Use Status: Former Tobacco user Quit Date: 2021 Smoked in Last 30 Days: Yes Use of substances other than those prescribed or required for medical reasons: No Any prior treatment program specific to substance use: No Advance Directives: No Advance Directives Information Provided: No Physical Exam ED Vital Signs: Vital Signs - 24 hr 08/19/23 07:27 08/19/23 09:14 Temperature 98.1 F Pulse Rate 99 88 Respiratory Rate 20 18 Blood Pressure 129/43 L 137/56 L Pulse Oximetry 99 100 Oxygen Delivery Method Room Air BMI result Body Mass Index 39.6 vss Appearance: Alert.? Oriented X3.? No acute distress.? Head: Normocephalic, atraumatic, no step-offs or deformities Eyes: Pupils equal, round and reactive to light.? Neck: Normal inspection.? Neck supple.? CVS: Normal heart rate and rhythm.? Pulses normal.? Respiratory: No respiratory distress.? Breath sounds normal.? Abdomen: Soft and nontender.? Skin: Skin warm and dry.? Normal skin color.? Normal skin turgor.? Extremities: + 2+ nonpitting edema to b/l LE w/ 2+DP,AT,PT pulses equal and b/l normal sensation distally edema L>R.? No calf ttp. 5/5 strength to bilateral upper and lower extremities + cellulitis w/ overlying warmth, w/ third spacing and fluid Neuro: Oriented X 3.? No motor deficit.? No sensory deficit. CN 2-12 intact Course Reevaluation(s) Reevaluation #1: Patient's CBC revealing a normocytic anemia which appears to be around patient's baseline no acute findings. Chemistry with no acute electrolyte abnormalities requiring intervention. Chronic kidney injury noted, slightly higher than usual. BNP 162. Time: 08:40 Reevaluation #2: Plan hospital admission. Time: 08:41 Medications Administered Generic Name Dose Route Start Last Admin Trade Name Freq PRN Reason Stop Dose Admin Acetaminophen 650 mg 08/19/23 09:20 08/19/23 09:53 Acetaminophen 325 Mg Tablet PO 650 mg Q6H PRN Administration Pain, Mild (Pain Scale 1-3) Oxycodone HCl 5 mg 08/19/23 09:23 08/19/23 09:53 Oxycodone Hcl Immed Release 5 Mg Tablet PO 5 mg Q6H PRN Administration Pain, Severe (Pain Scale 7-10) Discontinued Medications Generic Name Dose Route Start Last Admin Trade Name Freq PRN Reason Stop Dose Admin Furosemide 40 mg 08/19/23 08:10 08/19/23 08:28 Furosemide 40 Mg/4 Ml Vial IVPUSH 08/19/23 08:11 40 mg ONCE ONE Administration Protocol Piperacillin Sod/Tazobactam 50 mls @ 100 mls/hr 08/19/23 08:10 08/19/23 08:28 Sod 3.375 gm/ Sodium Chloride IV 08/19/23 08:39 100 mls/hr ONCE ONE Administration Medical Decision Making Medical Decision Making [facility] Narrative: [id number] 67 year old female presents w/ complaints of leg pain PE + 2+ nonpitting edema to b/l LE w/ 2+DP,AT,PT pulses equal and b/l normal sensation distally edema L>R.? No calf ttp. 5/5 strength to bilateral upper and lower extremities + cellulitis w/ overlying warmth, w/ third spacing and fluid Likley cellulitis and third spacing. Will rule out CHF. Unlikely DVT ( similar presentation on 08/08 with negative dvt study) no arterial occlusion or acute threat to limb. unlikely TEN, SJS or necrotizing infection. Plan labs, dvt study Differential Diagnosis Differential Diagnoses: The differential diagnosis associated with the presentation includes Likley cellulitis and third spacing. Will rule out CHF. Unlikely DVT ( similar presentation on 08/08 with negative dvt study) no arterial occlusion or acute threat to limb. unlikely TEN, SJS or necrotizing infection. Admission/Observation Consideration of admission/observation: Escalation of care including admission/observation considered Lab Data MDM Lab Attestation statement: I reviewed the patient's lab results. 08/19/23 07:53 08/19/23 07:53 Labs: Lab Results 08/19/23 08/19/23 Range/Units 07:53 09:30 WBC 4.8 (4.8-10.8) X10*3/uL RBC 2.92 L (4.20-5.50) X10*6/uL Hgb 7.6 L (12.0-16.0) g/dl Hct 24.8 L (37.0-47.0) % MCV 84.9 (80.0-98.0) fL MCH 26.0 L (27.0-33.0) pg MCHC 30.6 L (31.0-35.0) g/dl RDW 15.1 (11.0-16.0) % Plt Count 227 (160-400) X10*3/uL MPV 9.3 L (9.4-12.3) fL Immature Gran % (Auto) 0.4 (0.0-0.4) % Neut % (Auto) 78.8 H (45-73) % Lymph % (Auto) 17.0 L (20-40) % [place] % (Auto) 1.7 L (2-11) % Eos % (Auto) 1.9 (0-4) % Baso % (Auto) 0.2 (0-2) % Lymph # (Auto) 0.8 L (1.2-4.9) X10*3/uL [place] # (Auto) 0.1 (0.1-1.2) X10*3/uL Eos # (Auto) 0.1 (0.0-0.4) X10*3/uL Baso # (Auto) 0.0 (0.0-0.2) X10*3/uL Abs Immat Gran (auto) 0.02 (0.00-0.03) X10*3/uL Absolute Neuts (auto) 3.8 (2.0-8.3) x10*3/uL Absolute Nucleated RBC 0.000 (0.0-0.012) X10*3/uL Nucleated RBC % (auto) 0.0 (0.0-0.2) /100WBC Sodium 139 (135-145) mmol/L Potassium 4.1 (3.3-5.1) mmol/L Chloride 105 (96-108) mmol/L Carbon Dioxide 25 (22-29) mmol/L Anion Gap 13 (12-20) BUN 23 H (9-16) mg/dL Creatinine 1.61 H (0.5-1.4) mg/dL Estim Creat Clear Calc 38.8 Estimated GFR 32 Random Glucose 151 H (60-115) mg/dL Calcium 9.3 (8.4-10.2) mg/dL Total Bilirubin 0.3 (0.0-1.0) mg/dL AST 21 (5-31) U/L ALT 35 H (0-31) U/L Alkaline Phosphatase 74 (39-117) U/L Troponin I High Sens 21.5 H (<3.5-17.0) ng/L B-Natriuretic Peptide 162 H (<100) pg/mL Total Protein 7.0 (6.5-8.0) g/dL Albumin 3.6 (3.5-5.0) g/dL Urine Color Yellow Urine Appearance Cloudy Urine pH 5.5 (5.0-9.0) Ur Specific [place] <= 1.005 (1.005-1.025) Urine Protein Negative (Neg-Trace) mg/dL Urine Glucose (UA) Negative (Negative) mg/dL Urine Ketones Negative (Negative) mg/dL Urine Blood Negative (Negative) Urine Nitrite Negative (Negative) Ur Leukocyte Esterase Negative (Negative) Tests considered The following testing was considered but not selected: Patient recently had a negative DVT study of lower extremity, I do not suspect DVT. Likely cellulitis and 3rd spacing. No signs of arterial occlusion no indication for arterial scan Critical Care Time Critical Care Time Critical Care Time: Yes Total Critical Care Time: 35 Attestation: I attest to this time spent taking care of the patient, obtaining history, physical, reviewing labs, imaging, speaking to my attending Discharge Plan Discharge Clinical Impression: Cellulitis, Lower extremity edema Patient Disposition: Still a Patient Prescriptions: No Action furosemide [Lasix] 20 mg tablet 20 mg PO Q OTHER DAY Qty: 10 0RF albuterol sulfate 90 mcg/actuation HFA aerosol inhaler 0 mcg inhalation metformin 500 mg tablet 500 mg PO DAILY lisinopril-hydrochlorothiazide 10-12.5 mg tablet 1 tab PO DAILY pravastatin 40 mg tablet 40 mg PO DAILY levothyroxine 137 mcg tablet 137 mcg PO DAILY cholecalciferol (vitamin D3) 50 mcg (2,000 unit) capsule 50 mcg PO DAILY topiramate 50 mg tablet 50 mg PO BID 90 Days Qty: 180 6RF
[2023-08-19 07:27] VITALS: BP 129/43; PULSE 99; RESP 20; TEMP 36.7; O2SAT 99; BMI 40.0
[2023-08-19 08:14] LABS: MANUAL DIFF FLAG NO
[2023-08-19 08:15] LABS: Basophils Percent Auto 0.2 % (0-2); Eosinophils Absolute Auto 0.1 X10*3/uL (0.0-0.4); Eosinophils Percent Auto 1.9 % (0-4); Hematocrit 24.8 % (37.0-47.0); Hemoglobin 7.6 g/dl (12.0-16.0); Imm Gran Abs Auto 0.02 X10*3/uL (0.00-0.03); Imm Gran Pct Auto 0.4 % (0.0-0.4); Lymphocytes Absolute Auto 0.8 X10*3/uL (1.2-4.9); Mean Corpuscular HGB Conc 30.6 g/dl (31.0-35.0); Mean Corpuscular Volume 84.9 fL (80.0-98.0); Mean Platelet Volume 9.3 fL (9.4-12.3); Monocytes Absolute Auto 0.1 X10*3/uL (0.1-1.2); Monocytes Percent Auto 1.7 % (2-11); Neutrophils Absolute Auto 3.8 x10*3/uL (2.0-8.3); Neutrophils Percent Auto 78.8 % (45-73); Platelet Count 227 X10*3/uL (160-400); Red Blood Count 2.92 X10*6/uL (4.20-5.50); Red Cell Distribution Width 15.1 % (11.0-16.0); White Blood Count 4.8 X10*3/uL (4.8-10.8)
[2023-08-19] MEDS: Piperacillin Sodium/Tazobactam 3.375 GM in 0.9 % Sodium Chloride 50 ML IV (08:28)
[2023-08-19] MEDS: Furosemide 40 MG/4 ML VIAL IVPUSH (08:28)
[2023-08-19 08:30] LABS: Alanine Aminotransferase 35 U/L (0-31); Albumin Level 3.6 g/dL (3.5-5.0); Alkaline Phosphatase 74 U/L (39-117); Anion Gap 13 (12-20); Aspartate Amino Transferase 21 U/L (5-31); Bilirubin Total 0.3 mg/dL (0.0-1.0); Blood Urea Nitrogen 23 mg/dL (9-16); Calcium 9.3 mg/dL (8.4-10.2); Carbon Dioxide 25 mmol/L (22-29); Chloride 105 mmol/L (96-108); Creatinine Clr Calc Pharmacy 38.8; Estimated Glomerular Filt Rate 32; Glucose Random 151 mg/dL (60-115); Potassium 4.1 mmol/L (3.3-5.1); Sodium 139 mmol/L (135-145)
[2023-08-19 08:36] LABS: B Type Natriuretic Peptide 162 pg/mL (<100)
--- NOTE | 2023-08-19 08:46 | ECG_ITS ---
Test Reason : sob Blood Pressure : / mmHG Vent. Rate : 074 BPM Atrial Rate : 074 BPM P-R Int : 170 ms QRS Dur : 088 ms QT Int : 374 ms P-R-T Axes : 052 010 162 degrees QTc Int : 415 ms Sinus rhythm with Premature supraventricular complexes Left ventricular hypertrophy with repolarization abnormality ( [place] product ) Abnormal ECG When compared with ECG of 08-AUG-2023 15:55, Premature supraventricular complexes are now Present ST depressions are less prominent Referred By: Paulina Ribeiro Electronically Signed By:VANGIE LANGLEY MD
[2023-08-19 09:08] LABS: Troponin-I High Sensitivity 21.5 ng/L (<3.5-17.0)
[2023-08-19 09:14] VITALS: BP 137/56; PULSE 88; RESP 18; O2SAT 100
--- NOTE | 2023-08-19 09:23 | P.HPHOSP_ITS ---
History of Present Illness Date of Service: 08/19/23 Chief Complaint: leg swelling, pain and redness This is a 67 year old female with a PMH of DM, HTN, HLD, COPD, GEORGETTE non-compliant with CPAP and recently diagnosed RA (started on methotrexate in the last month) who presents to the ED with complaints of lower extremity swelling L > R, associated redness, pain and discomfort. The patient reports bilateral LE swelling for the last 2 months. She reports it has slowly progressed and she presented to [facility] about 10 days prior to admission for the same complaint. At that time, she was prescribed 20mg of lasix and discharged home. She now returns with LLE erythema, open wounds and foul smelling drainage. She reports generalized weakness and malaise, but denies fevers or chills. She reports inability to sleep in the supine positon, but states that is due to her neck/history of migranes. She denies sob, chest pain. Of note, the patient was recently diagnosed with RA and was initiated on methotrexate within the last 1 month. In the ED, patients work up was similar to her last presentation. She has normocytic anemia, SCr 1.61, BNP 162; HS trop is 20 (was 30s last ED visit); EKG shows evidence of LVH. She was given a dose of IV lasix and a dose of IV zosyn. She will now be admitted for further work up and treatment. Review of Systems 2 Review of Systems: Negative except HPI/interval history. [facility] Medical History (Updated 08/19/23 @ 09:33 by Huey Healy MD) Hypertension Obstructive sleep apnea of adult Thyroid activity decreased Cervical spondylosis Migraine headache without aura Diabetes COPD (chronic obstructive pulmonary disease) Pertinent family history: DM in her daughter Surgical History H/O: hysterectomy Social History Alcohol intake: never Patient Tobacco Use Status: Former Tobacco user Quit Date: 2021 Smoked in Last 30 Days: Yes Use of substances other than those prescribed or required for medical reasons: No Any prior treatment program specific to substance use: No Advance Directives: No Advance Directives Information Provided: No Meds Allergies Allergy/AdvReac Type Severity Reaction Status Date / Time codeine Allergy Severe Anaphylaxis Verified 08/18/23 12:40 ibuprofen AdvReac Mild Hives Verified 08/18/23 12:40 tramadol AdvReac Mild Hives Verified 08/18/23 12:40 Active Medications: Current Medications Acetaminophen (Acetaminophen 325 Mg Tablet) 650 mg PO Q6H PRN PRN Reason: Pain, Mild (Pain Scale 1-3) Enoxaparin Sodium (Enoxaparin Sodium 40 Mg/0.4 Ml Syringe) 40 mg SUBCUT Q24H [facility] Vancomycin HCl 1,000 mg/ (Sodium Chloride) 270 mls @ 270 mls/hr IV Q12H [facility] Pharmacy Consult (Consult Rx Vancomycin Dosing) 1 each MISCELLANE DAILY PRN PRN Reason: Consult order Sodium Chloride (0.9 % Sodium Chloride Flush 3 Ml Syringe) 3 ml IVFLUSH QSHIFT [facility] Home Medications Medication Instructions Recorded Confirmed Last Taken Type albuterol sulfate 90 mcg/actuation 0 mcg inhalation 01/14/22 04/08/22 Unknown History aerosol inhaler cholecalciferol (vitamin D3) 50 50 mcg PO DAILY 01/14/22 04/08/22 Unknown History mcg (2,000 unit) capsule levothyroxine 137 mcg tablet 137 mcg PO DAILY 01/14/22 04/08/22 Unknown History lisinopril 10 1 tab PO DAILY 01/14/22 04/08/22 Unknown History mg-hydrochlorothiazide 12.5 mg tablet metformin 500 mg tablet 500 mg PO DAILY 01/14/22 04/08/22 Unknown History pravastatin 40 mg tablet 40 mg PO DAILY 01/14/22 04/08/22 Unknown History Physical Exam 2 Vital Signs and Narrative: Vital Signs: Last Vital Signs Temp 98.1 F 08/19/23 07:27 Pulse 88 08/19/23 09:14 Resp 18 08/19/23 09:14 BP 137/56 L 08/19/23 09:14 Pulse Ox 100 08/19/23 09:14 O2 Del Method Room Air 08/19/23 07:27 BMI result Body Mass Index 40.0 Const: Other: Constitutional - Awake and Alert, No apparent distress Eyes - PERRLA, EOMI Cardiovascular - S1S2, RRR, b/l LE edema L > R Respiratory - Normal lung expansion, Normal respiratory effort, No respiratory distress, CTA bilaterally Gastrointestinal - NT / ND; +BS; No rebound or guarding - No CVA tenderness Extremities - no calf tenderness bilaterally, no swelling Musculoskeletal - Normal inspection, normal ROM Skin - see pictures below Neurological - Alert & oriented x3, No focal deficit Psychological - Appropriate affect Skin: Other: Results Labs 08/19/23 07:53 08/19/23 07:53 Labs: Laboratory Results - last 24 hr 08/19/23 07:53 MCV 84.9 MCH 26.0 L MCHC 30.6 L RDW 15.1 Plt Count 227 MPV 9.3 L Immature Gran % (Auto) 0.4 Neut % (Auto) 78.8 H Lymph % (Auto) 17.0 L [place] % (Auto) 1.7 L Eos % (Auto) 1.9 Baso % (Auto) 0.2 Lymph # (Auto) 0.8 L [place] # (Auto) 0.1 Eos # (Auto) 0.1 Baso # (Auto) 0.0 Abs Immat Gran (auto) 0.02 Absolute Neuts (auto) 3.8 Absolute Nucleated RBC 0.000 Nucleated RBC % (auto) 0.0 Anion Gap 13 Estim Creat Clear Calc 38.8 Estimated GFR 32 Random Glucose 151 H Calcium 9.3 Total Bilirubin 0.3 AST 21 ALT 35 H Alkaline Phosphatase 74 B-Natriuretic Peptide 162 H Total Protein 7.0 Albumin 3.6 Imaging Radiologist's Impressions: Impressions Chest X-Ray 08/19/23 08:33 IMPRESSION: Unremarkable examination. Assessment and Plan (1) Cellulitis: Status: Acute Plan This is a 67 year old female with a PMH of DM, HTN, HLD, COPD, GEORGETTE non-compliant with CPAP and recently diagnosed RA (started on methotrexate in the last month) who presents to the ED for the second time in 2 weeks for complaints of LE swelling. Her work up and presentation is consistent with cellulitis of the LLE. She will be admitted for further work up and treatment. 1. Purulent LLE cellulitis in a patient on immunosuppresive meds + diabetes will commence IV vancomcyin No evidence of sepsis this time 2. Bilateral LE edema unclear cause -- will initiate work up; Given abnormal EKG and long standing history of GEORGETTE (non-compliant) will start with 2d echo hold off diuretics today (to monitor renal function) 3. DM on metformin at home -- will be held POC + sliding scale 4. RA hold methothrexate 5. HTN normotensive, hold lisinopril / hctz today 6. hypothyroid synthroid 7. HLD statin 8. COPD stable, prn albuterol 9. Anemia likely of chronic disease pt reports she is to have outpatient iron infusion Full Code DVT pptx - Lovenox Due to the patients immunocompromised status, I suspect that her infection will require 48-72 hours of IV antibiotics for improvement. Furthermore, she has LE edema which is partially responsible for her cellulitis and will require work up. Lastly, this is her second ED visit in the last 2 weeks. For these reason, I anticipate her hospitalization to span at least 2 midnights and therefore, she will be admitted as inpatient. Med rec pending, will resume home meds as appropriate. Quality Stroke Does the patient have a stroke diagnosis?: No VTE Prior VTE?: No VTE Risk Level:: Medical - moderate - high VTE Device Contraindication: Treatment Not Indicated VTE Drug Contraindication: N/A - Med Ordered
[2023-08-19 09:38] LABS: Appearance Urine Cloudy; Color Urine Yellow; Glucose Urine UA Negative (Negative); Leukocyte Esterase Urine Negative (Negative); Nitrite Urine Negative (Negative); PH 5.5 (5.0-9.0); Specific Gravity - Urine <= 1.005 (1.005-1.025); Urine Blood Negative (Negative); Urine Ketones Negative (Negative); Urine Protein Negative (Neg-Trace)
[2023-08-19 09:39] VITALS: BMI 39.6
[2023-08-19] MEDS: Acetaminophen 325 MG TABLET 650 MG PO ×2 (09:53→16:12)
[2023-08-19] MEDS: oxyCODONE HCl Immed Release 5 MG TABLET PO ×2 (09:53→16:12)
[2023-08-19] MEDS: vancomycin/NS 2,000 MG/500 ML PLAST..BAG 250 MG IV (10:56)
[2023-08-19] MEDS: Enoxaparin Sodium 40 MG/0.4 ML SYRINGE SUBCUT (10:57)
--- NOTE | 2023-08-19 11:08 | PHA.PROG ---
Admission Date/Time: August 19, 2023 09:20 Indication:SKIN Weight in k.5 kg Adjusted body weight in Kg: Shelley body weight in Kg: Obesity Dosing Indication % IBW: Serum Creatinine - Last 168 Hours 08/19/23 07:53 Creatinine 1.61 H Estimated CrCl and GFR - Last 168 Hours 08/19/23 07:53 Estim Creat Clear Calc 38.8 Estimated GFR 32 Vancomycin Loading Dose: 2000 Current Vancomycin Dosing Regimen: 1000 Q24H Vancomycin Monitoring using AUC goal of 400 - 600 range with trough as surrogate marker: AUC 421, TROUGH 13.5 Date and Time for next Vancomycin Level to be drawn: 08/21 @0900 Pharmacist Comments on Vancomycin Plan: Vancomycin dosing will take advantage of Queue-it as a clinical decision support tool that uses Bayesian modeling to calculate individual patient's pharmacokinetic parameters and forecast the patient's drug concentration time course with the target goal AUC 24 range of 400 - 600 mg/L/hr.
--- NOTE | 2023-08-19 11:22 | PHA.MEDREC ---
Pharmacy Consult ? Medication Reconciliation Pharmacy has completed the medication reconciliation through claims hx and with the patient, patient stated she has been off aspirin for 3 months and self d/c'ed topiramate and prednisone gives her a headache so she also stopped that.
[2023-08-19 12:30] VITALS: BP 118/38; PULSE 78; RESP 19; O2SAT 97
[2023-08-19] MEDS: 0.9 % Sodium Chloride Flush 3 ML SYRINGE IVFLUSH (16:13)
[2023-08-19 16:15] VITALS: BP 125/47; PULSE 98; RESP 18; O2SAT 98
[2023-08-19 18:45] LABS: Glucose, Whole Blood 103 mg/dL (60-115)
[2023-08-19 19:49] VITALS: BP 90/26; PULSE 89; RESP 20; TEMP 36.8; O2SAT 99
[2023-08-19] MEDS: Morphine Sulfate 2 MG/ML CARTRIDGE IVPUSH (21:21)
--- NOTE | 2023-08-19 21:25 | PC.NURSE ---
pt medicated according to mar for 06/28 pain. pt calm and cooperative.
[2023-08-19 22:57] VITALS: BP 118/38; PULSE 93; RESP 20; TEMP 36.7; O2SAT 97
[2023-08-20] VITALS (8 sets, daily range): BP systolic 113–127; BP diastolic 40–66; PULSE 82–157; RESP 17–20; TEMP 36.2–37.1; O2SAT 96–99
[2023-08-20] MEDS: 0.9 % Sodium Chloride Flush 3 ML SYRINGE IVFLUSH ×4 (01:38→21:57)
--- NOTE | 2023-08-20 03:47 | MHC.EDTECH ---
This tech assumed care of patient at 0300AM, 2100 POC being done at this time and is 126 RN Kari aware. Hourly rounds and vitals completed.
[2023-08-20 04:01] LABS: Glucose, Whole Blood 126 mg/dL (60-115)
--- NOTE | 2023-08-20 06:00 | MHC.EDTECH ---
Hourly rounds completed and call kelly within reach
[2023-08-20 07:04] LABS: Anion Gap 14 (12-20); Blood Urea Nitrogen 22 mg/dL (9-16); Carbon Dioxide 25 mmol/L (22-29); Chloride 104 mmol/L (96-108); Creatinine Clr Calc Pharmacy 40.3; Estimated Glomerular Filt Rate 34; Glucose Random 135 mg/dL (60-115); Potassium 3.7 mmol/L (3.3-5.1); Sodium 139 mmol/L (135-145)
[2023-08-20 07:17] LABS: Glucose, Whole Blood 136 mg/dL (60-115)
[2023-08-20] MEDS: oxyCODONE HCl Immed Release 5 MG TABLET PO (07:39)
[2023-08-20] MEDS: Morphine Sulfate 4 MG/ML CARTRIDGE IVPUSH ×3 (10:24→21:56)
[2023-08-20] MEDS: Enoxaparin Sodium 40 MG/0.4 ML SYRINGE SUBCUT (10:25)
[2023-08-20] MEDS: vancomycin HCL 1,000 MG in 0.9 % Sodium Chloride 250 ML 270 MG IV (11:35)
--- NOTE | 2023-08-20 11:56 | MHC.CM.PN ---
CM MET WITH PT AND DAUGHTER AT BEDSIDE PT LIVES ALONE AND IS INDEPENDENT WITH CARE AT BASELINE PT HAS NO DME AND NO HOME SERVICES PT REPORTS SHE HAS A HCP NAMING HER DAUGHTER, MINDA SAWYER, HER AGENT COPY REQUESTED PCP: SAJI GARZA IMM DELIVERED DCP: HOME NO SERVICES DAUGHTER TO TRANSPORT
--- NOTE | 2023-08-20 12:24 | PC.NURSE ---
Left lower leg remains red/warm/weeping. Pain more controlled s/p pain meds admin. Vanco started. Daughter at bedside. VSS. Pt noted to have short panic episode but +effect with verbal reassurance
[2023-08-20 12:54] LABS: Glucose, Whole Blood 99 mg/dL (60-115)
--- NOTE | 2023-08-20 14:29 | HO.PM.IMPN ---
Subjective Subjective Date of Service: 08/20/23 Interval History: No acute issues overnight. Pain control adequate. Review of Systems Denies chest pain Denies shortness of breath Denies nausea vomiting diarrhea Denies fever chills Physical Exam Vital Signs: Vital Signs: Last Vital Signs Temp 98.1 F 08/20/23 07:34 Pulse 157 H 08/20/23 14:26 Resp 18 08/20/23 14:26 BP 124/66 08/20/23 14:26 Pulse Ox 97 08/20/23 10:24 O2 Del Method Room Air 08/20/23 14:26 BMI result Body Mass Index 39.6 Const: Other: No acute distress Resp: Other: Clear to auscultation bilaterally no rales rhonchi or wheezes Cardio: Other: No S4; positive S1-S2; no S3 murmurs rubs or gallops GI: Other: Soft nontender nondistended normoactive bowel sounds Skin: Other: See photos Extrem: Other: Edema bilaterally Objective Data Active Medications Acetaminophen (Acetaminophen 325 Mg Tablet) 650 mg PO Q6H PRN PRN Reason: Pain, Mild (Pain Scale 1-3) Last Admin: 08/19/23 16:12 Dose: 650 mg Documented By: COLLETTE Enoxaparin Sodium (Enoxaparin Sodium 40 Mg/0.4 Ml Syringe) 40 mg SUBCUT Q24H [facility] Last Admin: 08/20/23 10:25 Dose: 40 mg Documented By: AMIRAH Vancomycin HCl 1,000 mg/ (Sodium Chloride) 270 mls @ 270 mls/hr IV Q24H [facility] Last Infusion: 08/20/23 13:18 Dose: Infused Documented By: JC Morphine Sulfate (Morphine Sulfate 4 Mg/Ml Cartridge) 4 mg IVPUSH Q4H PRN; Protocol PRN Reason: Pain, Severe (Pain Scale 7-10) Last Admin: 08/20/23 10:24 Dose: 4 mg Documented By: AMIRAH Oxycodone HCl (Oxycodone Hcl Immed Release 5 Mg Tablet) 5 mg PO Q6H PRN PRN Reason: Pain, Severe (Pain Scale 7-10) Last Admin: 08/20/23 07:39 Dose: 5 mg Documented By: JAMMIE Pharmacy Consult (Consult Rx Vancomycin Dosing) 1 each MISCELLANE DAILY PRN PRN Reason: Consult order Sodium Chloride (0.9 % Sodium Chloride Flush 3 Ml Syringe) [facility] Last Admin: 08/20/23 07:41 Dose: 3 ml Documented By: JAMMIE Labs 08/19/23 07:53 08/20/23 06:40 Labs: Laboratory Results - last 24 hr 08/19/23 08/20/23 08/20/23 18:41 03:52 06:40 Anion Gap 14 Estim Creat Clear Calc 40.3 Estimated GFR 34 POC Glucose 103 126 H Random Glucose 135 H Calcium 9.0 08/20/23 08/20/23 07:13 12:49 Anion Gap Estim Creat Clear Calc Estimated GFR POC Glucose 136 H 99 Random Glucose Calcium Assessment and Plan (1) Lower extremity edema: Status: Acute (2) Cellulitis: Status: Acute (3) Hypertension: Status: Acute Plan This is a 67 year old female with a PMH of DM, HTN, HLD, COPD, GEORGETTE non-compliant with CPAP and recently diagnosed RA (started on methotrexate in the last month) who presents to the ED for the second time in 2 weeks for complaints of LE swelling. Her work up and presentation is consistent with cellulitis of the LLE. She will be admitted for further work up and treatment. 1. Purulent LLE cellulitis -vancomycin (2) -No evidence of sepsis this time -pain control adequate 2. Bilateral LE edema -echo pending -no diuresis at this time 3. DM -acceptable control on current therapies -lispro correctional scale -adjust as indicated 4. RA hold methothrexate 5. HTN -acceptable control on current therapies -adjust as indicated Full Code Lovenox Will require hand covering hospitalization for IV antibiotics for cellulitis as failed outpatient therapy Quality Stroke Does the patient have a stroke diagnosis?: No VTE Prior VTE?: No VTE Risk Level:: Medical - moderate - high VTE Device Contraindication: Treatment Not Indicated VTE Drug Contraindication: N/A - Med Ordered
--- NOTE | 2023-08-20 16:05 | HO.SKINPHOTO ---
Location: coccyx Category: pressure injury Stage: stage II-III
[2023-08-20 16:19] LABS: Glucose, Whole Blood 103 mg/dL (60-115)
[2023-08-20 20:44] LABS: Glucose, Whole Blood 140 mg/dL (60-115)
[2023-08-21] VITALS (7 sets, daily range): BP systolic 113–137; BP diastolic 48–69; PULSE 75–90; RESP 14–20; TEMP 36.3–37.2; O2SAT 94–98
[2023-08-21] MEDS: Morphine Sulfate 4 MG/ML CARTRIDGE IVPUSH ×5 (03:13→22:40)
[2023-08-21 06:55] LABS: Creatinine Clr Calc Pharmacy 41.3; Estimated Glomerular Filt Rate 35; Vancomycin Random 15.1 mcg/mL (15-20)
--- NOTE | 2023-08-21 07:23 | HE.PHANOTE ---
RE: VANCO Patients level came back at 15.1. Patients indication is skin. Will continue with current dose as patient is withing AUC goal. next level 12/5 @0900. Patients level this morning was also pulled almost 3 hours early. Which could have swayed the result
[2023-08-21] MEDS: 0.9 % Sodium Chloride Flush 3 ML SYRINGE IVFLUSH ×3 (07:59→20:49)
[2023-08-21 08:01] LABS: Glucose, Whole Blood 134 mg/dL (60-115)
[2023-08-21] MEDS: vancomycin HCL 1,000 MG in 0.9 % Sodium Chloride 250 ML 270 MG IV (10:54)
[2023-08-21] MEDS: Enoxaparin Sodium 40 MG/0.4 ML SYRINGE SUBCUT (10:57)
[2023-08-21 11:18] LABS: Glucose, Whole Blood 120 mg/dL (60-115)
--- NOTE | 2023-08-21 14:39 | HO.PM.IMPN ---
Subjective Subjective Date of Service: 08/21/23 Interval History: Pain control adequate however patient states he time she rises from supine position pain worsens. Remains afebrile Review of Systems Denies chest pain Denies shortness of breath Denies nausea vomiting diarrhea Denies fever chills Physical Exam Vital Signs: Vital Signs: Last Vital Signs Temp 97.4 F 08/21/23 11:09 Pulse 87 08/21/23 11:09 Resp 20 08/21/23 11:09 BP 119/64 08/21/23 11:09 Pulse Ox 97 08/21/23 11:09 O2 Del Method Room Air 08/21/23 11:09 BMI result Body Mass Index 39.6 Const: Other: No acute distress Resp: Other: Clear to auscultation bilaterally no rales rhonchi or wheezes Cardio: Other: No S4; positive S1-S2; no S3 murmurs rubs or gallops GI: Other: Soft nontender nondistended normoactive bowel sounds Skin: Other: See photos Extrem: Other: Edema bilaterally Objective Data Active Medications Acetaminophen (Acetaminophen 325 Mg Tablet) 650 mg PO Q6H PRN PRN Reason: Pain, Mild (Pain Scale 1-3) Last Admin: 08/19/23 16:12 Dose: 650 mg Documented By: COLLETTE Enoxaparin Sodium (Enoxaparin Sodium 40 Mg/0.4 Ml Syringe) 40 mg SUBCUT Q24H [facility] Last Admin: 08/21/23 10:57 Dose: 40 mg Documented By: FAMILIA Vancomycin HCl 1,000 mg/ (Sodium Chloride) 270 mls @ 270 mls/hr IV Q24H [facility] Last Infusion: 08/21/23 12:32 Dose: Infused Documented By: FAMILIA Morphine Sulfate (Morphine Sulfate 4 Mg/Ml Cartridge) 4 mg IVPUSH Q4H PRN; Protocol PRN Reason: Pain, Severe (Pain Scale 7-10) Last Admin: 08/21/23 14:04 Dose: 4 mg Documented By: FAMILIA Oxycodone HCl (Oxycodone Hcl Immed Release 5 Mg Tablet) 5 mg PO Q6H PRN PRN Reason: Pain, Severe (Pain Scale 7-10) Last Admin: 08/20/23 07:39 Dose: 5 mg Documented By: JAMMIE Pharmacy Consult (Consult Rx Vancomycin Dosing) 1 each MISCELLANE DAILY PRN PRN Reason: Consult order Sodium Chloride (0.9 % Sodium Chloride Flush 3 Ml Syringe) [facility] Last Admin: 08/21/23 07:59 Dose: 3 ml Documented By: FAMILIA Labs 08/19/23 07:53 08/21/23 06:33 Labs: Laboratory Results - last 24 hr 08/20/23 08/20/23 08/21/23 16:15 20:39 06:33 Estim Creat Clear Calc 41.3 Estimated GFR 35 POC Glucose 103 140 H Random Vancomycin 15.1 08/21/23 08/21/23 07:14 11:14 Estim Creat Clear Calc Estimated GFR POC Glucose 134 H 120 H Random Vancomycin Assessment and Plan (1) Cellulitis: Status: Acute (2) Diabetes: Status: Acute Plan This is a 67 year old female with a PMH of DM, HTN, HLD, COPD, GEORGETTE non-compliant with CPAP and recently diagnosed RA (started on methotrexate in the last month) who presents to the ED for the second time in 2 weeks for complaints of LE swelling. Her work up and presentation is consistent with cellulitis of the LLE. She will be admitted for further work up and treatment. 1. Purulent LLE cellulitis -vancomycin (3)... Add Zosyn given diabetic history -No evidence of sepsis this time -pain control adequate 2. Bilateral LE edema -echo pending -no diuresis at this time 3. DM -acceptable control on current therapies -lispro correctional scale -adjust as indicated 4. RA hold methothrexate 5. HTN -acceptable control on current therapies -adjust as indicated Full Code Lovenox Will require hand covering hospitalization for IV antibiotics for cellulitis as failed outpatient therapy Quality Stroke Does the patient have a stroke diagnosis?: No VTE Prior VTE?: No VTE Risk Level:: Medical - moderate - high VTE Device Contraindication: Treatment Not Indicated VTE Drug Contraindication: N/A - Med Ordered
[2023-08-21] MEDS: Piperacillin Sodium/Tazobactam 3.375 GM in 0.9 % Sodium Chloride 50 ML IV ×2 (15:52→20:50)
[2023-08-21] MEDS: Cholecalciferol (Vitamin D3) 25 MCG TABLET 50 MCG PO (15:53)
[2023-08-21] MEDS: Ascorbic Acid 500 MG TABLET PO (15:53)
[2023-08-21] MEDS: Folic Acid 1 MG TABLET PO (15:53)
[2023-08-21] MEDS: Pravastatin Sodium 40 MG TABLET PO (15:53)
[2023-08-21] MEDS: metFORMIN HCl 500 MG TABLET PO (15:53)
[2023-08-21 16:36] LABS: Glucose, Whole Blood 116 mg/dL (60-115)
[2023-08-21 20:23] LABS: Glucose, Whole Blood 118 mg/dL (60-115)
[2023-08-21] MEDS: oxyCODONE HCl Immed Release 5 MG TABLET PO (20:46)
[2023-08-22] VITALS (13 sets, daily range): BP systolic 105–149; BP diastolic 45–81; PULSE 68–107; RESP 16–22; TEMP 36.1–36.8; O2SAT 94–98
[2023-08-22] MEDS: Morphine Sulfate 4 MG/ML CARTRIDGE IVPUSH ×5 (02:52→23:49)
[2023-08-22] MEDS: Piperacillin Sodium/Tazobactam 3.375 GM in 0.9 % Sodium Chloride 50 ML IV ×4 (02:56→21:11)
[2023-08-22] MEDS: Levothyroxine Sodium 112 MCG, Levothyroxine Sodium 25 MCG 137 MCG PO (05:32)
[2023-08-22 07:43] LABS: Glucose, Whole Blood 118 mg/dL (60-115)
[2023-08-22 08:08] LABS: MANUAL DIFF FLAG NO
[2023-08-22 08:25] LABS: Basophils Percent Auto 0.3 % (0-2); Eosinophils Absolute Auto 0.1 X10*3/uL (0.0-0.4); Eosinophils Percent Auto 2.6 % (0-4); Hematocrit 22.7 % (37.0-47.0); Imm Gran Abs Auto 0.01 X10*3/uL (0.00-0.03); Imm Gran Pct Auto 0.3 % (0.0-0.4); Lymphocytes Absolute Auto 1.8 X10*3/uL (1.2-4.9); Lymphocytes Percent Auto 47.9 % (20-40); Mean Corpuscular HGB Conc 30.4 g/dl (31.0-35.0); Mean Corpuscular Hemoglobin 26.2 pg (27.0-33.0); Mean Corpuscular Volume 86.3 fL (80.0-98.0); Mean Platelet Volume 9.5 fL (9.4-12.3); Monocytes Absolute Auto 0.1 X10*3/uL (0.1-1.2); Monocytes Percent Auto 2.4 % (2-11); Neutrophils Absolute Auto 1.8 x10*3/uL (2.0-8.3); Neutrophils Percent Auto 46.5 % (45-73); Platelet Count 243 X10*3/uL (160-400); Red Blood Count 2.63 X10*6/uL (4.20-5.50); Red Cell Distribution Width 15.1 % (11.0-16.0); White Blood Count 3.8 X10*3/uL (4.8-10.8)
[2023-08-22] MEDS: Cholecalciferol (Vitamin D3) 25 MCG TABLET 50 MCG PO (08:27)
[2023-08-22] MEDS: Ascorbic Acid 500 MG TABLET PO (08:27)
[2023-08-22] MEDS: lisinopriL 10 MG, hydroCHLOROthiazide 12.5 MG PO (08:27)
[2023-08-22] MEDS: Folic Acid 1 MG TABLET PO (08:28)
[2023-08-22] MEDS: Enoxaparin Sodium 40 MG/0.4 ML SYRINGE SUBCUT (08:28)
[2023-08-22] MEDS: 0.9 % Sodium Chloride Flush 3 ML SYRINGE IVFLUSH ×2 (08:29→21:11)
[2023-08-22] MEDS: Pravastatin Sodium 40 MG TABLET PO (08:29)
[2023-08-22] MEDS: Furosemide 20 MG TABLET PO (08:33)
[2023-08-22 08:45] LABS: Hemoglobin 6.9 g/dl (12.0-16.0)
[2023-08-22 08:46] LABS: Alanine Aminotransferase 107 U/L (0-31); Albumin Level 3.1 g/dL (3.5-5.0); Alkaline Phosphatase 60 U/L (39-117); Anion Gap 12 (12-20); Aspartate Amino Transferase 72 U/L (5-31); Bilirubin Total 0.4 mg/dL (0.0-1.0); Blood Urea Nitrogen 23 mg/dL (9-16); Carbon Dioxide 26 mmol/L (22-29); Chloride 104 mmol/L (96-108); Creatinine Clr Calc Pharmacy 36.7; Estimated Glomerular Filt Rate 30; Glucose Fasting 110 mg/dL (60-99); Sodium 138 mmol/L (135-145); Total Protein 6.2 g/dL (6.5-8.0)
--- NOTE | 2023-08-22 11:44 | MHC.CM.PN ---
EMR reviewed and per MD rounds, pt is not medically cleared for D/C due to continued IV antibiotic treatment of cellulitis. CM will continue to follow.
[2023-08-22 11:52] LABS: Glucose, Whole Blood 98 mg/dL (60-115)
--- NOTE | 2023-08-22 12:01 | HO.WOUND ---
Wound Consult: Initial 67yr old female admitted to [facility] on?08/19/23 09:20 - See progress notes and H&P for detailed history. Wound consult palced for Coccyx assessment - arrival to bedside Left Leg wound Open to air noted - see photos included. Agreeable to assessment of left leg and coccyx and photo documentation. Coccyx Etiology: Unstageable Pressure Injury Present on Admission Measurements: 0.5cm x 0.5cm x 0.2cm Wound Bed: pale pink moist wound bed with thin layer of adherent yellow slough Drainage / Odor: serous drainage no odor noted Edges: ? macerated Jesika wound: ? MASD (Moisture Associated Skin Damage) Red blanchable tissue No Induration, Fluctuance, or Warmth noted Pain: Pt reports mild discomfort Goals of Treatment: ? Moist wound healing and enhanced autolytic debridement with Triad - protect from friction and moisture Of note Pt states she has had open injury to the coccyx in the past it has healed and reopened on occasion depending on clinical status. She denies use of cream and briefs at home - she reports she does use an off loading pillow when up to chair. Advised to continue to off load pressure and limit direct sitting time to 1-2 hour increments. Left Lower Leg Etiology: Cellulitis Wound Bed: Various stages of healing in wound bed - dry crusted, some pink clean moist Drainage / Odor: Dried yellow sheridan creamy drainage noted Edges: ? Irregular Jesika wound: ? Red defined bordered with s/s of significant decrease in fluid / swelling Induration, Fluctuance, Erythema, Warmth Pain: Pt reports decrease in pain since admission but remains with significant pain when assessing Goals of Treatment: ? Moist wound healing to allow for autolytic debridement Recommendations: 1. Turn and Reposition every 2 hours and as needed for patient comfort. 2. Off Load all bony prominences with use of pillows and heel boots. 3. Monitor for incontinence and moisture control. 4. Provide adequate and supplemental nutrition. 5. Order or Continue low air loss mattress. 6. Maintain blood glucose levels per Providers orders. 7. Coccyx - Off Load Pressure - Cleanse with PH balances wipes or spray, pat dry. Apply thin layer of Triad - cover with Foam dressing change daily and PRN. 8. Left Leg - Elevate Left lower leg - Cleanse with NS, pay dry. Apply single layer xeroform to wound beds cover with dry gauze wrap, change daily. Re-consult wound care Nurse for wound deterioration
[2023-08-22] MEDS: vancomycin HCL 1,000 MG in 0.9 % Sodium Chloride 250 ML 270 MG IV (12:46)
[2023-08-22] MEDS: oxyCODONE HCl Immed Release 5 MG TABLET PO (15:58)
--- NOTE | 2023-08-22 16:54 | P.PNIM_ITS ---
Subjective Subjective Date of Service: 08/22/23 Interval History: Slowly improving. Pain control acceptable at this time. Voices no complaint Review of Systems Denies chest pain Denies shortness of breath Denies nausea vomiting diarrhea Denies fever chills Physical Exam 2 Vital Signs: Vital Signs: Last Vital Signs Temp 97.1 F 08/22/23 15:39 Pulse 74 08/22/23 15:39 Resp 18 08/22/23 15:39 BP 137/63 08/22/23 15:39 Pulse Ox 96 08/22/23 15:39 O2 Del Method Room Air 08/22/23 15:39 BMI result Body Mass Index 39.6 Const: Other: No acute distress Resp: Other: Clear to auscultation bilaterally no rales rhonchi or wheezes Cardio: Other: No S4; positive S1-S2; no S3 murmurs rubs or gallops GI: Other: Soft nontender nondistended normoactive bowel sounds Skin: Other: See photos Extrem: Other: Edema bilaterally Objective Data Active Medications Acetaminophen (Acetaminophen 325 Mg Tablet) 650 mg PO Q6H PRN PRN Reason: Pain, Mild (Pain Scale 1-3) Last Admin: 08/19/23 16:12 Dose: 650 mg Documented By: COLLETTE Ascorbic Acid (Ascorbic Acid 500 Mg Tablet) 500 mg PO DAILY COUNT INCLUDES [facility] Last Admin: 08/22/23 08:27 Dose: 500 mg Documented By: VICKY Lisinopril 10 mg/ (Hydrochlorothiazide 12.5 mg) 0 mg PO DAILY COUNT INCLUDES [facility] Last Admin: 08/22/23 08:27 Dose: 2 tablet Documented By: VICKY Dextrose (Dextrose 50 % 25 Gm/50 Ml Syringe) 25 gm IVPUSH Q15M PRN; Protocol PRN Reason: per Hypoglycemia Standing Ord. Enoxaparin Sodium (Enoxaparin Sodium 40 Mg/0.4 Ml Syringe) 40 mg SUBCUT Q24H [facility] Last Admin: 08/22/23 08:28 Dose: 40 mg Documented By: VICKY Folic Acid (Folic Acid 1 Mg Tablet) 1 mg PO DAILY COUNT INCLUDES [facility] Last Admin: 08/22/23 08:28 Dose: 1 mg Documented By: VICKY Furosemide (Furosemide 20 Mg Tablet) 20 mg PO Q2D COUNT [facility]CLUDES THE [facility]; Protocol Last Admin: 08/22/23 08:33 Dose: 20 mg Documented By: VICKY Glucose (Glucose Gel 15 Gm Gel..Gram.) 15 gm PO Q15M PRN; Protocol PRN Reason: per Hypoglycemia Standing Ord. Vancomycin HCl 1,000 mg/ (Sodium Chloride) 270 mls @ 270 mls/hr IV Q24H [facility] Last Infusion: 08/22/23 13:47 Dose: Infused Documented By: WILD Piperacillin Sod/Tazobactam (Sod 3.375 gm/ Sodium Chloride) 50 mls @ 100 mls/hr IV Q6H [facility] Last Infusion: 08/22/23 16:26 Dose: Infused Documented By: WILD Insulin Human Lispro (Insulin Lispro 100 Unit/Ml 3 Ml Vial) 0 unit SUBCUT QIDACHS COUNT INCLUDES THE [facility]; Protocol Levothyroxine Sodium 112 mcg/ (Levothyroxine Sodium 25 mcg) 137 mcg PO DAILY@0600 COUNT INCLUDES THE [facility] Last Admin: 08/22/23 05:32 Dose: 137 mcg Documented By: PAM Metformin HCl (Metformin Hcl 500 Mg Tablet) 500 mg PO DAILY COUNT [facility]CLUDES [facility] Last Admin: 08/22/23 08:37 Dose: Not Given Documented By: VICKY Non-Admin Reason: pt refused, states she only takes at night Morphine Sulfate (Morphine Sulfate 4 Mg/Ml Cartridge) 4 mg IVPUSH Q4H PRN; Protocol PRN Reason: Pain, Severe (Pain Scale 7-10) Last Admin: 08/22/23 12:46 Dose: 4 mg Documented By: WILD Oxycodone HCl (Oxycodone Hcl Immed Release 5 Mg Tablet) 5 mg PO Q6H PRN PRN Reason: Pain, Severe (Pain Scale 7-10) Last Admin: 08/22/23 15:58 Dose: 5 mg Documented By: WILD Pharmacy Consult (Consult Rx Vancomycin Dosing) 1 each MISCELLANE DAILY PRN PRN Reason: Consult order Pravastatin Sodium (Pravastatin Sodium 40 Mg Tablet) 40 mg PO DAILY COUNT [facility]CLUD[facility] Last Admin: 08/22/23 08:29 Dose: 40 mg Documented By: VICKY Sodium Chloride (0.9 % Sodium Chloride Flush 3 Ml Syringe) 3 ml IVFLUSH QSHIFT COUNT [facility]CLUD[facility] Last Admin: 08/22/23 11:59 Dose: Not Given Documented By: WILD Non-Admin Reason: See Note Vitamin D (Cholecalciferol (Vitamin D3) 25 Mcg Tablet) 50 mcg PO DAILY [facility] Last Admin: 08/22/23 08:27 Dose: 50 mcg Documented By: VICKY Labs 08/22/23 07:57 08/22/23 07:57 Labs: Laboratory Results - last 24 hr 08/21/23 08/22/23 08/22/23 19:53 07:38 07:57 MCV 86.3 MCH 26.2 L MCHC 30.4 L RDW 15.1 Plt Count 243 MPV 9.5 Immature Gran % (Auto) 0.3 Neut % (Auto) 46.5 Lymph % (Auto) 47.9 H [place] % (Auto) 2.4 Eos % (Auto) 2.6 Baso % (Auto) 0.3 Lymph # (Auto) 1.8 [place] # (Auto) 0.1 Eos # (Auto) 0.1 Baso # (Auto) 0.0 Abs Immat Gran (auto) 0.01 Absolute Neuts (auto) 1.8 L Absolute Nucleated RBC 0.000 Nucleated RBC % (auto) 0.0 Anion Gap 12 Estim Creat Clear Calc 36.7 Estimated GFR 30 POC Glucose 118 H 118 H Fasting Glucose 110 H Calcium 9.0 Total Bilirubin 0.4 AST 72 H ALT 107 H Alkaline Phosphatase 60 Total Protein 6.2 L Albumin 3.1 L Blood Type Antibody Screen Crossmatch 08/22/23 08/22/23 09:01 11:48 MCV MCH MCHC RDW Plt Count MPV Immature Gran % (Auto) Neut % (Auto) Lymph % (Auto) [place] % (Auto) Eos % (Auto) Baso % (Auto) Lymph # (Auto) [place] # (Auto) Eos # (Auto) Baso # (Auto) Abs Immat Gran (auto) Absolute Neuts (auto) Absolute Nucleated RBC Nucleated RBC % (auto) Anion Gap Estim Creat Clear Calc Estimated GFR POC Glucose 98 Fasting Glucose Calcium Total Bilirubin AST ALT Alkaline Phosphatase Total Protein Albumin Blood Type A Positive Antibody Screen NEGATIVE Crossmatch See Detail Assessment and Plan (1) Cellulitis: Status: Acute (2) Diabetes: Status: Acute (3) Acute on chronic anemia: Status: Acute Plan This is a 67 year old female with a PMH of DM, HTN, HLD, COPD, GEORGETTE non-compliant with CPAP and recently diagnosed RA (started on methotrexate in the last month) who presents to the ED for the second time in 2 weeks for complaints of LE swelling. Her work up and presentation is consistent with cellulitis of the LLE. She will be admitted for further work up and treatment. 1. Purulent LLE cellulitis -vancomycin (4)Zosyn(2) -No evidence of sepsis this time -pain control adequate 2. Acute on chronic anemia -transfuse 2 units packed RBCs today -follow daily CBCs 3. DM -acceptable control on current therapies -lispro correctional scale -adjust as indicated 4. RA hold methothrexate 5. HTN -acceptable control on current therapies -adjust as indicated Full Code Lovenox Will require hand covering hospitalization for IV antibiotics for cellulitis as failed outpatient therapy Quality Stroke Does the patient have a stroke diagnosis?: No VTE Prior VTE?: No VTE Risk Level:: Medical - moderate - high VTE Device Contraindication: Treatment Not Indicated VTE Drug Contraindication: N/A - Med Ordered
[2023-08-22 18:49] LABS: Glucose, Whole Blood 110 mg/dL (60-115)
[2023-08-22 20:03] LABS: Glucose, Whole Blood 105 mg/dL (60-115)
[2023-08-23] VITALS (7 sets, daily range): BP systolic 106–141; BP diastolic 48–63; PULSE 65–77; RESP 16–21; TEMP 35.9–36.9; O2SAT 95–97
[2023-08-23] MEDS: Piperacillin Sodium/Tazobactam 3.375 GM in 0.9 % Sodium Chloride 50 ML IV ×4 (04:31→21:46)
[2023-08-23] MEDS: Levothyroxine Sodium 112 MCG, Levothyroxine Sodium 25 MCG 137 MCG PO (05:01)
[2023-08-23 06:57] LABS: MANUAL DIFF FLAG NO
[2023-08-23 07:08] LABS: Eosinophils Absolute Auto 0.1 X10*3/uL (0.0-0.4); Eosinophils Percent Auto 3.2 % (0-4); Hematocrit 26.5 % (37.0-47.0); Hemoglobin 8.6 g/dl (12.0-16.0); Imm Gran Abs Auto 0.01 X10*3/uL (0.00-0.03); Imm Gran Pct Auto 0.3 % (0.0-0.4); Lymphocytes Absolute Auto 1.5 X10*3/uL (1.2-4.9); Lymphocytes Percent Auto 49.2 % (20-40); Mean Corpuscular HGB Conc 32.5 g/dl (31.0-35.0); Mean Corpuscular Hemoglobin 27.5 pg (27.0-33.0); Mean Corpuscular Volume 84.7 fL (80.0-98.0); Mean Platelet Volume 9.6 fL (9.4-12.3); Monocytes Absolute Auto 0.2 X10*3/uL (0.1-1.2); Monocytes Percent Auto 4.8 % (2-11); Neutrophils Absolute Auto 1.3 x10*3/uL (2.0-8.3); Neutrophils Percent Auto 42.5 % (45-73); Platelet Count 214 X10*3/uL (160-400); Red Blood Count 3.13 X10*6/uL (4.20-5.50); Red Cell Distribution Width 14.7 % (11.0-16.0); White Blood Count 3.1 X10*3/uL (4.8-10.8)
[2023-08-23 07:22] LABS: Alanine Aminotransferase 87 U/L (0-31); Alkaline Phosphatase 77 U/L (39-117); Anion Gap 14 (12-20); Aspartate Amino Transferase 44 U/L (5-31); Bilirubin Total 0.9 mg/dL (0.0-1.0); Blood Urea Nitrogen 23 mg/dL (9-16); Calcium 8.8 mg/dL (8.4-10.2); Carbon Dioxide 25 mmol/L (22-29); Chloride 103 mmol/L (96-108); Estimated Glomerular Filt Rate 30; Glucose Fasting 102 mg/dL (60-99); Potassium 3.9 mmol/L (3.3-5.1); Sodium 138 mmol/L (135-145)
[2023-08-23 07:57] LABS: Glucose, Whole Blood 95 mg/dL (60-115)
[2023-08-23] MEDS: Enoxaparin Sodium 40 MG/0.4 ML SYRINGE SUBCUT (09:28)
[2023-08-23] MEDS: 0.9 % Sodium Chloride Flush 3 ML SYRINGE IVFLUSH ×3 (09:29→22:52)
[2023-08-23] MEDS: Morphine Sulfate 4 MG/ML CARTRIDGE IVPUSH ×4 (09:29→22:48)
[2023-08-23] MEDS: metFORMIN HCl 500 MG TABLET PO (09:30)
[2023-08-23] MEDS: lisinopriL 10 MG, hydroCHLOROthiazide 12.5 MG PO (09:30)
[2023-08-23] MEDS: Pravastatin Sodium 40 MG TABLET PO (09:30)
[2023-08-23] MEDS: Cholecalciferol (Vitamin D3) 25 MCG TABLET 50 MCG PO (09:31)
[2023-08-23] MEDS: Folic Acid 1 MG TABLET PO (09:31)
[2023-08-23] MEDS: Ascorbic Acid 500 MG TABLET PO (09:31)
[2023-08-23 09:43] LABS: Vancomycin Random 16.2 mcg/mL (15-20)
--- NOTE | 2023-08-23 09:58 | HE.PHANOTE ---
VANCO DOSE ADJUSTMENT BASED ON SCR AND TROUGH OF 16.2 DOSE CONTINUED AT 1000MG Q 24H. NEXT TROUGH 08/25 @ 0900
[2023-08-23] MEDS: vancomycin HCL 1,000 MG in 0.9 % Sodium Chloride 250 ML 270 MG IV (10:40)
[2023-08-23 11:33] LABS: Glucose, Whole Blood 104 mg/dL (60-115)
--- NOTE | 2023-08-23 15:02 | P.PNIM_ITS ---
Subjective Subjective Date of Service: 08/23/23 Interval History: Slowly improving. Remains afebrile Review of Systems Denies chest pain Denies shortness of breath Denies nausea vomiting diarrhea Denies fever chills Physical Exam 2 Vital Signs: Vital Signs: Last Vital Signs Temp 98.2 F 08/23/23 11:08 Pulse 65 08/23/23 11:08 Resp 18 08/23/23 11:08 BP 119/58 L 08/23/23 11:08 Pulse Ox 95 08/23/23 11:08 O2 Del Method Room Air 08/23/23 11:08 BMI result Body Mass Index 39.6 Const: Other: No acute distress Resp: Other: Clear to auscultation bilaterally no rales rhonchi or wheezes Cardio: Other: No S4; positive S1-S2; no S3 murmurs rubs or gallops GI: Other: Soft nontender nondistended normoactive bowel sounds Skin: Other: See photos Extrem: Other: Edema bilaterally Objective Data Active Medications Acetaminophen (Acetaminophen 325 Mg Tablet) 650 mg PO Q6H PRN PRN Reason: Pain, Mild (Pain Scale 1-3) Last Admin: 08/19/23 16:12 Dose: 650 mg Documented By: COLLETTE Ascorbic Acid (Ascorbic Acid 500 Mg Tablet) 500 mg PO DAILY [facility] Last Admin: 08/23/23 09:31 Dose: 500 mg Documented By: JO-ANN Lisinopril 10 mg/ (Hydrochlorothiazide 12.5 mg) 0 mg PO DAILY [facility] [place] Last Admin: 08/23/23 09:30 Dose: 12.5 tablet Documented By: JO-ANN Dextrose (Dextrose 50 % 25 Gm/50 Ml Syringe) 25 gm IVPUSH Q15M PRN; Protocol PRN Reason: per Hypoglycemia Standing Ord. Enoxaparin Sodium (Enoxaparin Sodium 40 Mg/0.4 Ml Syringe) 40 mg SUBCUT Q24H [facility] [place] Last Admin: 08/23/23 09:28 Dose: 40 mg Documented By: JO-ANN Folic Acid (Folic Acid 1 Mg Tablet) 1 mg PO DAILY [facility] [place] Last Admin: 08/23/23 09:31 Dose: 1 mg Documented By: JO-ANN Furosemide (Furosemide 20 Mg Tablet) 20 mg PO Q2D [facility]; Protocol Last Admin: 08/22/23 08:33 Dose: 20 mg Documented By: VICKY Glucose (Glucose Gel 15 Gm Gel..Gram.) 15 gm PO Q15M PRN; Protocol PRN Reason: per Hypoglycemia Standing Ord. Vancomycin HCl 1,000 mg/ (Sodium Chloride) 270 mls @ 270 mls/hr IV Q24H [facility] [place] Last Infusion: 08/23/23 11:42 Dose: Infused Documented By: JO-ANN Piperacillin Sod/Tazobactam (Sod 3.375 gm/ Sodium Chloride) 50 mls @ 100 mls/hr IV Q6H [facility] [place] Last Infusion: 08/23/23 10:29 Dose: Infused Documented By: JO-ANN Insulin Human Lispro (Insulin Lispro 100 Unit/Ml 3 Ml Vial) 0 unit SUBCUT QIDACHS [facility] [place]; Protocol Last Admin: 08/23/23 11:45 Dose: Not Given Documented By: JO-ANN Non-Admin Reason: No Insulin Coverage Levothyroxine Sodium 112 mcg/ (Levothyroxine Sodium 25 mcg) 137 mcg PO DAILY@0600 [facility] [place] Last Admin: 08/23/23 05:01 Dose: 137 mcg Documented By: JYOTI Metformin HCl (Metformin Hcl 500 Mg Tablet) 500 mg PO DAILY [facility] [place] Last Admin: 08/23/23 09:30 Dose: 500 mg Documented By: JO-ANN Morphine Sulfate (Morphine Sulfate 4 Mg/Ml Cartridge) 4 mg IVPUSH Q4H PRN; Protocol PRN Reason: Pain, Severe (Pain Scale 7-10) Last Admin: 08/23/23 13:34 Dose: 4 mg Documented By: JO-ANN Oxycodone HCl (Oxycodone Hcl Immed Release 5 Mg Tablet) 5 mg PO Q6H PRN PRN Reason: Pain, Severe (Pain Scale 7-10) Last Admin: 08/22/23 15:58 Dose: 5 mg Documented By: WILD Pharmacy Consult (Consult Rx Vancomycin Dosing) 1 each MISCELLANE DAILY PRN PRN Reason: Consult order Pravastatin Sodium (Pravastatin Sodium 40 Mg Tablet) 40 mg PO DAILY [facility] [place] Last Admin: 08/23/23 09:30 Dose: 40 mg Documented By: JO-ANN Sodium Chloride (0.9 % Sodium Chloride Flush 3 Ml Syringe) [facility] Last Admin: 12/05/23 09:29 Dose: 3 ml Documented By: JO-ANN Vitamin D (Cholecalciferol (Vitamin D3) 25 Mcg Tablet) 50 mcg PO DAILY [facility] Last Admin: 08/23/23 09:31 Dose: 50 mcg Documented By: JO-ANN Labs 08/23/23 05:44 08/23/23 05:45 Labs: Laboratory Results - last 24 hr 08/22/23 08/22/23 08/22/23 09:01 15:43 19:58 MCV MCH MCHC RDW Plt Count MPV Immature Gran % (Auto) Neut % (Auto) Lymph % (Auto) [place] % (Auto) Eos % (Auto) Baso % (Auto) Lymph # (Auto) [place] # (Auto) Eos # (Auto) Baso # (Auto) Abs Immat Gran (auto) Absolute Neuts (auto) Absolute Nucleated RBC Nucleated RBC % (auto) Hold Purple Top Anion Gap Estim Creat Clear Calc Estimated GFR POC Glucose 110 105 Fasting Glucose Calcium Total Bilirubin AST ALT Alkaline Phosphatase Total Protein Albumin Random Vancomycin Blood Type A Positive Antibody Screen NEGATIVE Crossmatch See Detail 08/23/23 08/23/23 08/23/23 05:44 05:45 06:58 MCV 84.7 MCH 27.5 MCHC 32.5 RDW 14.7 Plt Count 214 MPV 9.6 Immature Gran % (Auto) 0.3 Neut % (Auto) 42.5 L Lymph % (Auto) 49.2 H [place] % (Auto) 4.8 Eos % (Auto) 3.2 Baso % (Auto) 0.0 Lymph # (Auto) 1.5 [place] # (Auto) 0.2 Eos # (Auto) 0.1 Baso # (Auto) 0.0 Abs Immat Gran (auto) 0.01 Absolute Neuts (auto) 1.3 L Absolute Nucleated RBC 0.000 Nucleated RBC % (auto) 0.0 Hold Purple Top Anion Gap 14 Estim Creat Clear Calc 36.0 Estimated GFR 30 POC Glucose 95 Fasting Glucose 102 H Calcium 8.8 Total Bilirubin 0.9 AST 44 H ALT 87 H Alkaline Phosphatase 77 Total Protein 6.0 L Albumin 3.0 L Random Vancomycin Blood Type Antibody Screen Crossmatch 08/23/23 08/23/23 09:20 11:11 MCV MCH MCHC RDW Plt Count MPV Immature Gran % (Auto) Neut % (Auto) Lymph % (Auto) [place] % (Auto) Eos % (Auto) Baso % (Auto) Lymph # (Auto) [place] # (Auto) Eos # (Auto) Baso # (Auto) Abs Immat Gran (auto) Absolute Neuts (auto) Absolute Nucleated RBC Nucleated RBC % (auto) Hold Purple Top SEE NOTE Anion Gap Estim Creat Clear Calc Estimated GFR POC Glucose 104 Fasting Glucose Calcium Total Bilirubin AST ALT Alkaline Phosphatase Total Protein Albumin Random Vancomycin 16.2 Blood Type Antibody Screen Crossmatch Assessment and Plan (1) Cellulitis: Status: Acute (2) Acute on chronic anemia: Status: Acute Plan This is a 67 year old female with a PMH of DM, HTN, HLD, COPD, GEORGETTE non-compliant with CPAP and recently diagnosed RA (started on methotrexate in the last month) who presents to the ED for the second time in 2 weeks for complaints of LE swelling. Her work up and presentation is consistent with cellulitis of the LLE. She will be admitted for further work up and treatment. 1. Purulent LLE cellulitis -vancomycin (5)Zosyn(3) -No evidence of sepsis this time -pain control adequate 2. Acute on chronic anemia -hemoglobin stable -follow daily CBCs 3. DM -acceptable control on current therapies -lispro correctional scale -adjust as indicated 4. RA hold methothrexate 5. HTN -acceptable control on current therapies -adjust as indicated Full Code Kaityx Will require hand covering hospitalization for IV antibiotics for cellulitis as failed outpatient therapy Quality Stroke Does the patient have a stroke diagnosis?: No VTE Prior VTE?: No VTE Risk Level:: Medical - moderate - high VTE Device Contraindication: Treatment Not Indicated VTE Drug Contraindication: N/A - Med Ordered
[2023-08-23] MEDS: oxyCODONE HCl Immed Release 5 MG TABLET PO (16:28)
[2023-08-23 17:22] LABS: Glucose, Whole Blood 108 mg/dL (60-115)
[2023-08-23 20:35] LABS: Glucose, Whole Blood 119 mg/dL (60-115)
[2023-08-24] VITALS (8 sets, daily range): BP systolic 117–151; BP diastolic 56–66; PULSE 62–77; RESP 16–20; TEMP 36.5–37.6; O2SAT 94–98
[2023-08-24] MEDS: Piperacillin Sodium/Tazobactam 3.375 GM in 0.9 % Sodium Chloride 50 ML IV ×4 (04:00→20:42)
[2023-08-24] MEDS: Morphine Sulfate 4 MG/ML CARTRIDGE IVPUSH ×4 (04:55→20:42)
[2023-08-24] MEDS: Levothyroxine Sodium 112 MCG, Levothyroxine Sodium 25 MCG 137 MCG PO (04:55)
[2023-08-24 07:25] LABS: Glucose, Whole Blood 115 mg/dL (60-115)
[2023-08-24 07:39] LABS: MANUAL DIFF FLAG NO
[2023-08-24 07:44] LABS: Basophils Percent Auto 0.4 % (0-2); Eosinophils Absolute Auto 0.2 X10*3/uL (0.0-0.4); Hematocrit 27.5 % (37.0-47.0); Hemoglobin 8.7 g/dl (12.0-16.0); Imm Gran Abs Auto 0.01 X10*3/uL (0.00-0.03); Imm Gran Pct Auto 0.4 % (0.0-0.4); Lymphocytes Absolute Auto 1.3 X10*3/uL (1.2-4.9); Lymphocytes Percent Auto 45.1 % (20-40); Mean Corpuscular HGB Conc 31.6 g/dl (31.0-35.0); Mean Corpuscular Hemoglobin 27.5 pg (27.0-33.0); Mean Platelet Volume 9.4 fL (9.4-12.3); Monocytes Absolute Auto 0.2 X10*3/uL (0.1-1.2); Monocytes Percent Auto 6.7 % (2-11); Neutrophils Absolute Auto 1.2 x10*3/uL (2.0-8.3); Neutrophils Percent Auto 41.4 % (45-73); Platelet Count 198 X10*3/uL (160-400); Red Blood Count 3.16 X10*6/uL (4.20-5.50); Red Cell Distribution Width 14.9 % (11.0-16.0); White Blood Count 2.8 X10*3/uL (4.8-10.8)
[2023-08-24 08:01] LABS: Alanine Aminotransferase 63 U/L (0-31); Alkaline Phosphatase 87 U/L (39-117); Anion Gap 13 (12-20); Aspartate Amino Transferase 23 U/L (5-31); Bilirubin Total 0.4 mg/dL (0.0-1.0); Blood Urea Nitrogen 25 mg/dL (9-16); Carbon Dioxide 24 mmol/L (22-29); Chloride 105 mmol/L (96-108); Creatinine Clr Calc Pharmacy 35.9; Estimated Glomerular Filt Rate 29; Glucose Fasting 115 mg/dL (60-99); Potassium 3.7 mmol/L (3.3-5.1); Sodium 138 mmol/L (135-145); Total Protein 6.3 g/dL (6.5-8.0)
--- NOTE | 2023-08-24 08:18 | CA_ITS ---
Transthoracic Echocardiogram Patient (Last, First, Middle): Mariana Coleman, Gender: Female Date of : 1955 Age: 67 Procedure Date: 08/24/2023 Procedure Type: Transthoracic Echocardiogram Location: [facility] Height: 160.02 cm Weight: 101.15 kg BSA: 2.03 m2 Heart Rate: bpm BP: 132 / 58 mmHg Defense Analyst: Referring MD: Everardo Meeks MD Symptoms: edema Study Quality: Fair w Definity ECG Rhythm: Sinus Conclusions: - The left ventricular systolic function is normal. The calculated ejection fraction is 55% by biplane method. - No obvious valvular pathology seen on this study. Findings Procedure Information Contrast agent, definity, is being given per protocol without apparent complications. Left Ventricle Normal left ventricular cavity size. There is normal left ventricular wall thickness. The left ventricular systolic function is normal. The calculated ejection fraction is 55% by biplane method. There is no evidence of regional wall motion abnormalities. Diastolic function is normal for age. Right Ventricle Normal right ventricular cavity size and systolic function. Atria The left atrium is mildly dilated. The right atrium is normal in size. Aortic Valve The aortic valve structure and function is likely normal. There is no aortic valve stenosis. There is no aortic valve regurgitation. Mitral Valve There is mild mitral annular calcification. There is trace mitral valve regurgitation. There is no mitral valve stenosis. Pulmonic Valve The pulmonic valve is likely normal. Tricuspid Valve There is trace tricuspid valve regurgitation. There is no evidence of pulmonary hypertension. Great Vessels The aorta was not well visualized. The aortic annulus is normal in size. Venous The inferior vena cava is normal in size and collapses greater than 50% with inspiration. Pericardium/Pleural There is no evidence of pericardial effusion. Prior Study Comparison No prior study available for comparison. Recommendations, Care & Conclusions No obvious valvular pathology seen on this study. Measurements 2D Linear Measurements IVSd: 0.94 0.6-0.9/0.6-1.0 cm LVIDd: 4.20 3.9-5.3/4.2-5.9 cm LVIDd Index: 2.07 2.4-3.2/2.2-3.1 cm/m2 LVIDs: 2.86 2.0-3.6 cm LVPWd: 1.05 0.7-1.1 cm Ao Root: 3.00 2.1-3.5 cm LA Diam: 3.70 2.7-3.8/3.0-4.0 cm LAIDs Index: 1.82 1.5-2.3 cm/m2 LV Mass: 169.01 67-162/88-224 g LV Mass Index: 83.26 43-95/49-115 g/m2 LVOT Diam: 1.90 3.0+(-)1.3 cm 2D Systolic Function EF 4C: 57.40 >55% EF 2C: 52.30 >55% EF BiP: 54.60 >55% Mitral Valve MV Pk E: 1.28 MV PK A: 0.91 MV Decel Time: 274.00 E/A: 1.40 E'Lateral: 12.40 E'Medial: 7.07 E/E' Med: 18.10 E/E' Lat: 10.30 PHT: 80.00 MVA PHT: 2.75 Decel Miner: 4.68 Aortic Valve AoV Pk Ozzy: 1.41 AoV Mn Ozzy: 0.95 AoV VTI: 0.35 AoV Pk Grad: 8.00 Aov Mn Grad: 4.00 WALTER Cont.VTI: 1.79 LVOT LVOT Pk Ozzy: 0.88 LVOT Mn Ozzy: 0.56 LVOT VTI: 0.22 LVOT Pk Grad: 3.00 LVOT Mn Grad: 2.00 LVOT Diam: 1.90 LVOT Area: 2.84 Diastolic Function MV Pk E: 1.28 MV Pk A: 0.91 E/A: 1.40 E'Medial: 7.07 E/E' Med: 18.10 E' Laterial: 12.40 E/E' Lat: 10.30 Tricuspid Valve TR Pk Ozzy: 2.25 TR Pk Grad: 20.00 Great Vessels Aorta Ao Root-2D: 3.00 2.0-3.7 cm Ao Asc: 3.30 2.1-3.4 cm Pulmonary Valve PV Pk Ozzy: 0.95 Peak PV Grad: 4.00 Updated in Other Vendor System with Status of Final Ra Rojas MD electronically signed on 08/24/2023 1:46:25 PM with status of Final
--- NOTE | 2023-08-24 08:52 | MHC.CM.PN ---
CM MET W/PT DTR/MARIVEL WHO WAS CONCERNED ABOUT PT HAVING [facility] SERVICES SET UP FOR WOUND CARE, [facility] HAD ACCEPTED PT YESTERDAY AND WILL SEE PT WITHIN 24HRS OF DC, DRESSING SUPPLIES TO BE SENT HOME W/PT AND [facility] S.O. FOR TRANSPORT LATER THIS AFTERNOON
[2023-08-24 09:07] LABS: C Reactive Protein 6.12 mg/dL (< or = 0.50); Iron 23 mcg/dL (30-160); Lactate Dehydrogenase 180 U/L (122-220); Percent Iron Saturation 10 % (15-50); Total Iron Binding Capacity 235 mcg/dL (228-428); Unsaturated Iron Binding 212 ug/dL
[2023-08-24 09:23] LABS: Ferritin 112 ng/mL (10-250)
[2023-08-24] MEDS: metFORMIN HCl 500 MG TABLET PO (10:20)
[2023-08-24] MEDS: Ascorbic Acid 500 MG TABLET PO (10:20)
[2023-08-24] MEDS: Cholecalciferol (Vitamin D3) 25 MCG TABLET 50 MCG PO (10:20)
[2023-08-24] MEDS: 0.9 % Sodium Chloride Flush 3 ML SYRINGE IVFLUSH ×2 (10:21→16:09)
[2023-08-24] MEDS: Enoxaparin Sodium 40 MG/0.4 ML SYRINGE SUBCUT (10:21)
[2023-08-24] MEDS: Folic Acid 1 MG TABLET PO (10:21)
[2023-08-24] MEDS: Pravastatin Sodium 40 MG TABLET PO (10:22)
[2023-08-24] MEDS: Furosemide 20 MG TABLET PO (10:24)
[2023-08-24] MEDS: lisinopriL 10 MG, hydroCHLOROthiazide 12.5 MG PO (10:35)
--- NOTE | 2023-08-24 10:54 | P.PNIM_ITS ---
Subjective Subjective Date of Service: 08/24/23 Interval History: leg swelling improved no chest pain Review of Systems Review of Systems: Yes all other systems are reviewed and are negative Physical Exam 2 Vital Signs: Vital Signs: Last Vital Signs Temp 98.2 F 08/24/23 07:28 Pulse 77 08/24/23 07:28 Resp 20 08/24/23 07:28 BP 132/58 L 08/24/23 07:28 Pulse Ox 97 08/24/23 07:28 O2 Del Method Room Air 08/24/23 07:28 BMI result Body Mass Index 39.6 Gen: in no acute distress HEENT: sclera anicteric, moist mucus membranes Neck: supple Lungs: clear to auscultation bilaterally Heart: regular rate and rhythm, no murmurs Abd: soft, non-tender, non-distended Ext: 1+ pitting edema BLE Skin: erythema LLE with some crusting, mild yellow discharge Neuro: alert and oriented x3, no focal findings Psych: appropriate affect Objective Data Active Medications Acetaminophen (Acetaminophen 325 Mg Tablet) 650 mg PO Q6H PRN PRN Reason: Pain, Mild (Pain Scale 1-3) Last Admin: 08/19/23 16:12 Dose: 650 mg Documented By: COLLETTE Ascorbic Acid (Ascorbic Acid 500 Mg Tablet) 500 mg PO DAILY [facility] Last Admin: 08/24/23 10:20 Dose: 500 mg Documented By: ARNOLDO Lisinopril 10 mg/ (Hydrochlorothiazide 12.5 mg) 0 mg PO DAILY [facility] Last Admin: 08/24/23 10:35 Dose: 2 tablet Documented By: ARNOLDO Comments: 2 tablet Dextrose (Dextrose 50 % 25 Gm/50 Ml Syringe) 25 gm IVPUSH Q15M PRN; Protocol PRN Reason: per Hypoglycemia Standing Ord. Enoxaparin Sodium (Enoxaparin Sodium 40 Mg/0.4 Ml Syringe) 40 mg SUBCUT Q24H [facility] Last Admin: 08/24/23 10:21 Dose: 40 mg Documented By: ARNOLDO Folic Acid (Folic Acid 1 Mg Tablet) 1 mg PO DAILY [facility] Last Admin: 08/24/23 10:21 Dose: 1 mg Documented By: ARNOLDO Furosemide (Furosemide 20 Mg Tablet) 20 mg PO Q2D [facility]; Protocol Last Admin: 08/24/23 10:24 Dose: 20 mg Documented By: ARNOLDO Glucose (Glucose Gel 15 Gm Gel..Gram.) 15 gm PO Q15M PRN; Protocol PRN Reason: per Hypoglycemia Standing Ord. Vancomycin HCl 1,000 mg/ (Sodium Chloride) 270 mls @ 270 mls/hr IV Q24H [facility] Last Infusion: 08/23/23 11:42 Dose: Infused Documented By: JO-ANN Piperacillin Sod/Tazobactam (Sod 3.375 gm/ Sodium Chloride) 50 mls @ 100 mls/hr IV Q6H [facility] Last Admin: 08/24/23 10:19 Dose: 100 mls/hr Documented By: ARNOLDO Insulin Human Lispro (Insulin Lispro 100 Unit/Ml 3 Ml Vial) 0 unit SUBCUT QIDACHS [facility]; Protocol Last Admin: 08/24/23 07:38 Dose: Not Given Documented By: ARNOLDO Non-Admin Reason: No Insulin Coverage Levothyroxine Sodium 112 mcg/ (Levothyroxine Sodium 25 mcg) 137 mcg PO DAILY@0600 [facility] Last Admin: 08/24/23 04:55 Dose: 137 mcg Documented By: PATRICIA Metformin HCl (Metformin Hcl 500 Mg Tablet) 500 mg PO DAILY [facility] Last Admin: 08/24/23 10:20 Dose: 500 mg Documented By: ARNOLDO Methotrexate (Methotrexate Sodium 2.5 Mg Tablet) 15 mg PO WE@0900 [facility] Morphine Sulfate (Morphine Sulfate 4 Mg/Ml Cartridge) 4 mg IVPUSH Q4H PRN; Protocol PRN Reason: Pain, Severe (Pain Scale 7-10) Last Admin: 08/24/23 10:24 Dose: 4 mg Documented By: ARNOLDO Pharmacy Consult (Consult Rx Vancomycin Dosing) 1 each MISCELLANE DAILY PRN PRN Reason: Consult order Pravastatin Sodium (Pravastatin Sodium 40 Mg Tablet) 40 mg PO DAILY [facility] Last Admin: 08/24/23 10:22 Dose: 40 mg Documented By: ARNOLDO Sodium Chloride (0.9 % Sodium Chloride Flush 3 Ml Syringe) 3 ml IVFLUSH QSHIFT [facility] Last Admin: 08/24/23 10:21 Dose: 3 ml Documented By: ARNOLDO Vitamin D (Cholecalciferol (Vitamin D3) 25 Mcg Tablet) 50 mcg PO DAILY [facility] Last Admin: 08/24/23 10:20 Dose: 50 mcg Documented By: ARNOLDO Labs 08/24/23 07:15 08/24/23 07:15 Labs: Laboratory Results - last 24 hr 08/23/23 08/23/23 08/23/23 11:11 15:43 20:25 MCV MCH MCHC RDW Plt Count MPV Immature Gran % (Auto) Neut % (Auto) Lymph % (Auto) [place] % (Auto) Eos % (Auto) Baso % (Auto) Lymph # (Auto) [place] # (Auto) Eos # (Auto) Baso # (Auto) Abs Immat Gran (auto) Absolute Neuts (auto) Absolute Nucleated RBC Nucleated RBC % (auto) Anion Gap Estim Creat Clear Calc Estimated GFR POC Glucose 104 108 119 H Fasting Glucose Calcium Iron TIBC % Saturation Unsat Iron Binding Ferritin Total Bilirubin AST ALT Alkaline Phosphatase Lactate Dehydrogenase C-Reactive Protein Total Protein Albumin 08/24/23 08/24/23 07:07 07:15 MCV 87.0 MCH 27.5 MCHC 31.6 RDW 14.9 Plt Count 198 MPV 9.4 Immature Gran % (Auto) 0.4 Neut % (Auto) 41.4 L Lymph % (Auto) 45.1 H [place] % (Auto) 6.7 Eos % (Auto) 6.0 H Baso % (Auto) 0.4 Lymph # (Auto) 1.3 [place] # (Auto) 0.2 Eos # (Auto) 0.2 Baso # (Auto) 0.0 Abs Immat Gran (auto) 0.01 Absolute Neuts (auto) 1.2 L Absolute Nucleated RBC 0.000 Nucleated RBC % (auto) 0.0 Anion Gap 13 Estim Creat Clear Calc 35.9 Estimated GFR 29 POC Glucose 115 Fasting Glucose 115 H Calcium 9.0 Iron 23 L TIBC 235 % Saturation 10 L Unsat Iron Binding 212 Ferritin 112 Total Bilirubin 0.4 AST 23 ALT 63 H Alkaline Phosphatase 87 Lactate Dehydrogenase 180 C-Reactive Protein 6.12 H Total Protein 6.3 L Albumin 3.0 L Assessment and Plan (1) Cellulitis: Status: Acute (2) Acute on chronic anemia: Status: Acute Plan d6 67yo F with DM2, HTN, HLD, COPD, GEORGETTE noncompliant with CPAP, recently diagnosed RA on MTX presenting with BLE swelling, admitted for LLE cellulitis LLE cellulitis unstageable coccygeal pressure injury - vanco d6, pip-cyndi d4 - wound care: 1. Turn and Reposition every 2 hours and as needed for patient comfort. 2. Off Load all bony prominences with use of pillows and heel boots. 3. Monitor for incontinence and moisture control. 4. Provide adequate and supplemental nutrition. 5. Order or Continue low air loss mattress. 6. Maintain blood glucose levels per Providers orders. 7. Coccyx - Off Load Pressure - Cleanse with PH balances wipes or spray, pat dry. Apply thin layer of Triad - cover with Foam dressing change daily and PRN. 8. Left Leg - Elevate Left lower leg - Cleanse with NS, pay dry. Apply single layer xeroform to wound beds cover with dry gauze wrap, change daily. peripheral edema - TTE today, recheck BNP, on outpt furosemide acute/chronic normocytic anemia - transfused 2u PRBCs 08/22 - has iron deficiency, will start repletion; also check B12 + FA + FOBT - monitor CBC DM2 - correction-dose lispro HTN - lisinopril-HCTZ CKD3 - SCr around baseline, monitor + avoid nephrotoxins RA - resume MTX hypothyroidism - continue LT4 VTE ppx - LMWH dispo - anticipate home with [facility] for wound care In my clinical judgment, the patient requires continued inpatient hospitalization for the following reasons: IV ABX Total time managing care of this patient today: 35 minutes. Quality Stroke Does the patient have a stroke diagnosis?: No VTE Prior VTE?: No VTE Risk Level:: Medical - moderate - high VTE Device Contraindication: Treatment Not Indicated VTE Drug Contraindication: N/A - Med Ordered
[2023-08-24 11:01] LABS: Glucose, Whole Blood 102 mg/dL (60-115)
[2023-08-24] MEDS: vancomycin HCL 1,000 MG in 0.9 % Sodium Chloride 250 ML 270 MG IV (11:35)
[2023-08-24] MEDS: metHOTREXate sodium 2.5 MG TABLET 15 MG PO (11:36)
[2023-08-24 12:47] LABS: Immature Retic Fraction 31.9 % (3.0-15.9); Retic HGB Equivalent 36.8 pg (30.0-35.0); Reticulocyte Percent 1.4 % (0.5-1.8); Reticulocytes Absolute 0.043 X10*6/uL (0.026-0.095)
[2023-08-24 16:40] LABS: Glucose, Whole Blood 86 mg/dL (60-115)
[2023-08-24 20:45] LABS: Glucose, Whole Blood 113 mg/dL (60-115)
[2023-08-25] MEDS: Piperacillin Sodium/Tazobactam 3.375 GM in 0.9 % Sodium Chloride 50 ML IV ×4 (03:12→21:03)
[2023-08-25] MEDS: Morphine Sulfate 4 MG/ML CARTRIDGE IVPUSH ×5 (03:15→21:05)
[2023-08-25 03:41] VITALS: BP 162/66; PULSE 70; RESP 14; TEMP 36.3; O2SAT 94
[2023-08-25] MEDS: Levothyroxine Sodium 112 MCG, Levothyroxine Sodium 25 MCG 137 MCG PO (06:12)
[2023-08-25 06:57] LABS: Hemoglobin 9.7 g/dl (12.0-16.0); Mean Corpuscular HGB Conc 32.3 g/dl (31.0-35.0); Mean Corpuscular Hemoglobin 27.7 pg (27.0-33.0); Mean Corpuscular Volume 85.7 fL (80.0-98.0); Mean Platelet Volume 9.5 fL (9.4-12.3); Platelet Count 209 X10*3/uL (160-400); Red Cell Distribution Width 15.7 % (11.0-16.0); White Blood Count 4.7 X10*3/uL (4.8-10.8)
[2023-08-25 07:07] LABS: Anion Gap 14 (12-20); Blood Urea Nitrogen 23 mg/dL (9-16); Calcium 9.1 mg/dL (8.4-10.2); Carbon Dioxide 24 mmol/L (22-29); Chloride 106 mmol/L (96-108); Creatinine Clr Calc Pharmacy 33.5; Estimated Glomerular Filt Rate 27; Glucose Random 116 mg/dL (60-115); Sodium 140 mmol/L (135-145)
[2023-08-25 07:12] LABS: B Type Natriuretic Peptide 518 pg/mL (<100)
[2023-08-25 07:15] VITALS: BP 124/58; PULSE 62; RESP 18; TEMP 36.6; O2SAT 94
[2023-08-25 07:28] LABS: Glucose, Whole Blood 106 mg/dL (60-115)
[2023-08-25 08:02] LABS: Folate > 20.0 ng/mL (> or = 4.0); Vitamin B12 403 pg/mL (200-900)
[2023-08-25] MEDS: lisinopriL 10 MG, hydroCHLOROthiazide 12.5 MG PO (08:25)
[2023-08-25] MEDS: Folic Acid 1 MG TABLET PO (08:25)
[2023-08-25] MEDS: Ascorbic Acid 500 MG TABLET PO (08:25)
[2023-08-25] MEDS: 0.9 % Sodium Chloride Flush 3 ML SYRINGE IVFLUSH ×2 (08:25→15:10)
[2023-08-25] MEDS: Pravastatin Sodium 40 MG TABLET PO (08:25)
[2023-08-25] MEDS: Cholecalciferol (Vitamin D3) 25 MCG TABLET 50 MCG PO (08:26)
[2023-08-25] MEDS: Enoxaparin Sodium 40 MG/0.4 ML SYRINGE SUBCUT (08:26)
[2023-08-25 08:58] LABS: Magnesium 2.2 mg/dL (1.6-2.6)
[2023-08-25 09:56] LABS: Vancomycin Random 17.2 mcg/mL (15-20)
--- NOTE | 2023-08-25 10:07 | PM.CNCAR ---
History of Present Illness History of Present Illness Date of Service: 08/25/23 Chief complaint: leg swelling and redness Narrative: This is a cardiology consultation regarding NSVT. Telemetry had shown a 14 beat run of monomorphic NSVT and that led to the consultation. Patient states she does not have any cardiac issues. No history of any coronary artery disease or myocardial infarction or cardiomyopathy or in fact any other cardiac issues. Within limits of her activity, she does not have any history of chest pains or any definitive cardiac symptoms. Per notes, current admissions because of left lower extremity cellulitis. There is being treated by appropriate care. Review of Systems Review of Systems: Yes all other systems are reviewed and are negative Constitutional: Constitutional: Reports as per HPI and Reports no additional constitutional complaints Eyes: Eyes: Reports as per HPI and Denies no additional eye complaints ENT: Denies system reviewed and no additional complaints, except as documented and Reports as per HPI Cardiovascular: Cardiovascular: Reports as per HPI, Reports no additional cardiovascular complaints, Denies acrocyanosis, Denies cool extremities, Denies chest pain, Denies leg edema, Denies lightheadedness, Denies palpitations and Denies dyspnea Respiratory: Respiratory: Reports as per HPI, Denies no additional respiratory complaints and Denies dyspnea Gastrointestinal: Gastrointestinal: Reports as per HPI and Denies no additional gastrointestinal complaints Genitourinary: Genitourinary: Reports as per HPI Musculoskeletal: Musculoskeletal: Reports no additional musculoskeletal complaints and Reports as per HPI Integumentary/Breasts: Skin/Breast: Reports system reviewed and no additional complaints, except as docu Neurologic: Reports system reviewed and no additional complaints, except as documented and Reports as per HPI Psychiatric: Psychiatric: Reports no additional psychiatric complaints and Reports as per HPI Endocrine: Endocrine: Reports no additional endocrine complaints, Reports as per HPI and Denies palpitations Hematologic/Lymphatic: Hematologic/Lymphatic: Reports no additional hematologic/lymphatic complaints and Reports as per HPI Allergic/Immunologic: Allergic/Immunologic: Reports no additional allergic/immunologic complaints and Reports as per HPI [facility] Past Medical History Medical History (Updated 08/25/23 @ 10:10 by Ra Rojas MD) Hypertension Obstructive sleep apnea of adult Thyroid activity decreased Cervical spondylosis Migraine headache without aura Diabetes COPD (chronic obstructive pulmonary disease) Family History Pertinent family history: No pertinent family history Surgical History Surgical History H/O: hysterectomy Social History Social History Household Members: None Housing: Apartment Do you presently have visiting nurse or other home services: No Alcohol intake: never Comment: Supervise assist Patient Tobacco Use Status: Former Tobacco user Quit Date: 2021 e-Cigarette/Vaping Use: Never Used Second Hand Smoke Exposure: No service: No Meds Allergies Allergy/AdvReac Type Severity Reaction Status Date / Time codeine Allergy Severe Anaphylaxis Verified 08/18/23 12:40 ibuprofen AdvReac Mild Hives Verified 08/18/23 12:40 tramadol AdvReac Mild Hives Verified 08/18/23 12:40 Active Medications: Current Medications Acetaminophen (Acetaminophen 325 Mg Tablet) 650 mg PO Q6H PRN PRN Reason: Pain, Mild (Pain Scale 1-3) Last Admin: 08/19/23 16:12 Dose: 650 mg Ascorbic Acid (Ascorbic Acid 500 Mg Tablet) 500 mg PO DAILY [facility] Last Admin: 08/25/23 08:25 Dose: 500 mg Lisinopril 10 mg/ (Hydrochlorothiazide 12.5 mg) 0 mg PO DAILY [facility] Last Admin: 08/25/23 08:25 Dose: 22.5 tablet Dextrose (Dextrose 50 % 25 Gm/50 Ml Syringe) 25 gm IVPUSH Q15M PRN; Protocol PRN Reason: per Hypoglycemia Standing Ord. Enoxaparin Sodium (Enoxaparin Sodium 40 Mg/0.4 Ml Syringe) 40 mg SUBCUT Q24H [facility] Last Admin: 08/25/23 08:26 Dose: 40 mg Folic Acid (Folic Acid 1 Mg Tablet) 1 mg PO DAILY [facility] Last Admin: 08/25/23 08:25 Dose: 1 mg Furosemide (Furosemide 20 Mg Tablet) 20 mg PO Q2D [facility]; Protocol Last Admin: 08/24/23 10:24 Dose: 20 mg Glucose (Glucose Gel 15 Gm Gel..Gram.) 15 gm PO Q15M PRN; Protocol PRN Reason: per Hypoglycemia Standing Ord. Vancomycin HCl 1,000 mg/ (Sodium Chloride) 270 mls @ 270 mls/hr IV Q24H [facility] Last Infusion: 08/24/23 12:40 Dose: Infused Piperacillin Sod/Tazobactam (Sod 3.375 gm/ Sodium Chloride) 50 mls @ 100 mls/hr IV Q6H [facility] Last Infusion: 08/25/23 09:11 Dose: Infused Insulin Human Lispro (Insulin Lispro 100 Unit/Ml 3 Ml Vial) 0 unit SUBCUT QIDACHS [facility]; Protocol Last Admin: 08/25/23 07:28 Dose: Not Given Levothyroxine Sodium 112 mcg/ (Levothyroxine Sodium 25 mcg) 137 mcg PO DAILY@0600 [facility] Last Admin: 08/25/23 06:12 Dose: 137 mcg Methotrexate (Methotrexate Sodium 2.5 Mg Tablet) 15 mg PO WE@0900 [facility] Last Admin: 08/24/23 11:36 Dose: 15 mg Morphine Sulfate (Morphine Sulfate 4 Mg/Ml Cartridge) 4 mg IVPUSH Q4H PRN; Protocol PRN Reason: Pain, Severe (Pain Scale 7-10) Last Admin: 08/25/23 08:24 Dose: 4 mg Pharmacy Consult (Consult Rx Vancomycin Dosing) 1 each MISCELLANE DAILY PRN PRN Reason: Consult order Pravastatin Sodium (Pravastatin Sodium 40 Mg Tablet) 40 mg PO DAILY [facility] Last Admin: 08/25/23 08:25 Dose: 40 mg Sodium Chloride (0.9 % Sodium Chloride Flush 3 Ml Syringe) 3 ml IVFLUSH QSHIFT [facility] Last Admin: 08/25/23 08:25 Dose: 3 ml Vitamin D (Cholecalciferol (Vitamin D3) 25 Mcg Tablet) 50 mcg PO DAILY [facility] Last Admin: 08/25/23 08:26 Dose: 50 mcg Home Medications Medication Instructions Recorded Confirmed Last Taken Type albuterol sulfate 90 mcg/actuation 1 - 2 puff inhalation Q4H PRN 01/14/22 08/19/23 Unknown History aerosol inhaler Shortness Of Breath cholecalciferol (vitamin D3) 50 50 mcg PO DAILY 01/14/22 08/19/23 08/18/23 History mcg (2,000 unit) capsule levothyroxine 137 mcg tablet 137 mcg PO DAILY 01/14/22 08/19/23 08/18/23 History lisinopril 10 1 tab PO DAILY 01/14/22 08/19/23 08/18/23 History mg-hydrochlorothiazide 12.5 mg tablet metformin 500 mg tablet 500 mg PO DAILY 01/14/22 08/19/23 08/18/23 History pravastatin 40 mg tablet 40 mg PO DAILY 01/14/22 08/19/23 08/18/23 History ascorbic acid (vitamin C) 500 mg 500 mg PO DAILY 08/19/23 08/19/23 08/18/23 History tablet (Vitamin C) ferrous sulfate 325 mg (65 mg 325 mg PO DAILY 08/19/23 08/19/23 08/18/23 History iron) tablet folic acid 1 mg tablet 1 mg PO DAILY 08/19/23 08/19/23 08/18/23 History methotrexate sodium 2.5 mg tablet 15 mg PO WE@0900 08/19/23 08/19/23 08/17/23 History Physical Exam Vital Signs: Vital Signs: Last Vital Signs Temp 97.8 F 08/25/23 07:15 Pulse 62 08/25/23 07:15 Resp 18 08/25/23 07:15 BP 124/58 L 08/25/23 07:15 Pulse Ox 94 08/25/23 07:15 O2 Del Method Room Air 08/25/23 07:15 BMI result Body Mass Index 39.6 Const: General: comfortable and no acute distress Orientation/consciousness: patient oriented x3 HEENT: Other: Unremarkable Head: Yes normal to inspection Neck: Neck: Yes normal visual inspection Chest: Chest palpation & inspection: normal inspection of the chest Resp: Auscultation: clear to auscultation bilaterally Cardio: Palpation: normal PMI Heart sounds: S1 normal heart sound present, S2 normal heart sound present, no gallops, no murmurs and no rubs GI: Palpation (GI): Soft to palpation Back/Spine/Pelvis: Other: unremarkable Skin: General skin exam: no rashes or lesions noted Neuro: General: patient oriented x3 Extrem: General: Yes normal to inspection Psych: Mental Status: mental status grossly normal Objective Labs and Meds 08/25/23 06:41 08/25/23 06:41 Lab results: Laboratory Results - last 24 hr 08/24/23 08/24/23 08/24/23 07:15 07:15 07:15 WBC RBC Hgb Hct MCV MCH MCHC RDW Plt Count MPV Absolute Nucleated RBC Nucleated RBC % (auto) Absolute Retic 0.043 Cancelled Percent Retic 1.4 Cancelled Immature Retic Fraction 31.9 H Retic Hgb Equivalent Sodium Potassium Chloride Carbon Dioxide Anion Gap BUN Creatinine Estim Creat Clear Calc Estimated GFR POC Glucose Random Glucose Calcium Magnesium B-Natriuretic Peptide Vitamin B12 Folate Random Vancomycin 08/24/23 08/24/23 08/24/23 07:15 07:15 10:54 WBC RBC Hgb Hct MCV MCH MCHC RDW Plt Count MPV Absolute Nucleated RBC Nucleated RBC % (auto) Absolute Retic Percent Retic Immature Retic Fraction Cancelled Retic Hgb Equivalent 36.8 H Cancelled Sodium Potassium Chloride Carbon Dioxide Anion Gap BUN Creatinine Estim Creat Clear Calc Estimated GFR POC Glucose 102 Random Glucose Calcium Magnesium B-Natriuretic Peptide Vitamin B12 Folate Random Vancomycin 08/24/23 08/24/23 08/25/23 16:21 20:27 06:41 WBC 4.7 L RBC 3.50 L Hgb 9.7 L Hct 30.0 L MCV 85.7 MCH 27.7 MCHC 32.3 RDW 15.7 Plt Count 209 MPV 9.5 Absolute Nucleated RBC 0.000 Nucleated RBC % (auto) 0.0 Absolute Retic Percent Retic Immature Retic Fraction Retic Hgb Equivalent Sodium 140 Potassium 4.0 Chloride 106 Carbon Dioxide 24 Anion Gap 14 BUN 23 H Creatinine 1.85 H Estim Creat Clear Calc 33.5 Estimated GFR 27 POC Glucose 86 113 Random Glucose 116 H Calcium 9.1 Magnesium 2.2 B-Natriuretic Peptide 518 H Vitamin B12 403 Folate > 20.0 Random Vancomycin 08/25/23 08/25/23 07:20 09:13 WBC RBC Hgb Hct MCV MCH MCHC RDW Plt Count MPV Absolute Nucleated RBC Nucleated RBC % (auto) Absolute Retic Percent Retic Immature Retic Fraction Retic Hgb Equivalent Sodium Potassium Chloride Carbon Dioxide Anion Gap BUN Creatinine Estim Creat Clear Calc Estimated GFR POC Glucose 106 Random Glucose Calcium Magnesium B-Natriuretic Peptide Vitamin B12 Folate Random Vancomycin 17.2 ECG Interpretation: EKG with sinus rhythm at 74/Min; left ventricular hypertrophy with repolarization changes. Assessment and Plan (1) NSVT (nonsustained ventricular tachycardia): Status: Acute Plan Echocardiogram with LVEF of 55%. No clear wall motion abnormalities or other findings. Telemetry reviewed and there is an episode of monomorphic VT, 14 beats. No other episodes. There is lot of artifact. There is evidence of CKD by creatinine. Low-grade troponins. BNP is on the higher side. These abnormalities could be related to the kidney function. She seems to have low albumin as well. Potassium is 4 magnesium is 2.2. Overall, no specific inpatient management. As an outpatient, consider Holter/stress test. If able to come, can arrange follow-up. Discussed with daughter at bedside. Discussed with Dr. Meeks. Procedures Date of Service Date of Service: 08/25/23
--- NOTE | 2023-08-25 10:08 | HE.PHANOTE ---
RE VANCO DOSING PT LEVEL TODAY 17.2 (ONLYS SLIGHTLY HIGHER THAN PREDICTED 16.3 IN INSIGHT). SCR SLOWLY INCREASING. TODAY 1.85. CONTINUE DAILY MONITORING OF SCR AND CONTINUE ON CURRENT REGIMEN. NEXT TROUGH ON 08/27 @0900.
[2023-08-25 11:16] VITALS: BP 141/65; PULSE 74; RESP 15; TEMP 36.7; O2SAT 97
[2023-08-25] MEDS: vancomycin HCL 1,000 MG in 0.9 % Sodium Chloride 250 ML 270 MG IV (12:26)
[2023-08-25 12:36] LABS: Glucose, Whole Blood 104 mg/dL (60-115)
--- NOTE | 2023-08-25 13:37 | HO.PM.IMPN ---
Subjective Subjective Date of Service: 08/25/23 Interval History: 14 beats monomorphic VT this AM, no symptoms legs swollen but improving no fever Review of Systems Review of Systems: Yes all other systems are reviewed and are negative Physical Exam Vital Signs: Vital Signs: Last Vital Signs Temp 98.1 F 08/25/23 11:16 Pulse 74 08/25/23 11:16 Resp 15 08/25/23 11:16 BP 141/65 H 08/25/23 11:16 Pulse Ox 97 08/25/23 11:16 O2 Del Method Room Air 08/25/23 11:16 BMI result Body Mass Index 39.6 Gen: in no acute distress HEENT: sclera anicteric, moist mucus membranes Neck: supple Lungs: clear to auscultation bilaterally Heart: regular rate and rhythm, no murmurs Abd: soft, non-tender, non-distended Ext: 1+ pitting edema BLE Skin: erythema LLE with some crusting, mild yellow discharge Neuro: alert and oriented x3, no focal findings Psych: appropriate affect Objective Data Active Medications Acetaminophen (Acetaminophen 325 Mg Tablet) 650 mg PO Q6H PRN PRN Reason: Pain, Mild (Pain Scale 1-3) Last Admin: 08/19/23 16:12 Dose: 650 mg Documented By: COLLETTE Ascorbic Acid (Ascorbic Acid 500 Mg Tablet) 500 mg PO DAILY [facility] Last Admin: 08/25/23 08:25 Dose: 500 mg Documented By: JYOTI Lisinopril 10 mg/ (Hydrochlorothiazide 12.5 mg) 0 mg PO DAILY [facility] Last Admin: 08/25/23 08:25 Dose: 22.5 tablet Documented By: JYOTI Dextrose (Dextrose 50 % 25 Gm/50 Ml Syringe) 25 gm IVPUSH Q15M PRN; Protocol PRN Reason: per Hypoglycemia Standing Ord. Enoxaparin Sodium (Enoxaparin Sodium 40 Mg/0.4 Ml Syringe) 40 mg SUBCUT Q24H [facility] Last Admin: 08/25/23 08:26 Dose: 40 mg Documented By: JYOTI Folic Acid (Folic Acid 1 Mg Tablet) 1 mg PO DAILY [facility] Last Admin: 08/25/23 08:25 Dose: 1 mg Documented By: JYOTI Furosemide (Furosemide 20 Mg Tablet) 20 mg PO Q2D [facility]; Protocol Last Admin: 08/24/23 10:24 Dose: 20 mg Documented By: ARNOLDO Glucose (Glucose Gel 15 Gm Gel..Gram.) 15 gm PO Q15M PRN; Protocol PRN Reason: per Hypoglycemia Standing Ord. Vancomycin HCl 1,000 mg/ (Sodium Chloride) 270 mls @ 270 mls/hr IV Q24H [facility] Last Infusion: 08/25/23 13:31 Dose: Infused Documented By: JYOTI Piperacillin Sod/Tazobactam (Sod 3.375 gm/ Sodium Chloride) 50 mls @ 100 mls/hr IV Q6H [facility] Last Infusion: 08/25/23 09:11 Dose: Infused Documented By: JYOTI Insulin Human Lispro (Insulin Lispro 100 Unit/Ml 3 Ml Vial) 0 unit SUBCUT QIDACHS [facility]; Protocol Last Admin: 08/25/23 12:15 Dose: Not Given Documented By: JYOTI Non-Admin Reason: doesn't need coverage Levothyroxine Sodium 112 mcg/ (Levothyroxine Sodium 25 mcg) 137 mcg PO DAILY@0600 [facility] Last Admin: 08/25/23 06:12 Dose: 137 mcg Documented By: VIV Methotrexate (Methotrexate Sodium 2.5 Mg Tablet) 15 mg PO WE@0900 [facility] Last Admin: 08/24/23 11:36 Dose: 15 mg Documented By: ARNOLDO Morphine Sulfate (Morphine Sulfate 4 Mg/Ml Cartridge) 4 mg IVPUSH Q4H PRN; Protocol PRN Reason: Pain, Severe (Pain Scale 7-10) Last Admin: 08/25/23 12:26 Dose: 4 mg Documented By: JYOTI Pharmacy Consult (Consult Rx Vancomycin Dosing) 1 each MISCELLANE DAILY PRN PRN Reason: Consult order Pravastatin Sodium (Pravastatin Sodium 40 Mg Tablet) 40 mg PO DAILY [facility] Last Admin: 08/25/23 08:25 Dose: 40 mg Documented By: JYOTI Sodium Chloride (0.9 % Sodium Chloride Flush 3 Ml Syringe) 3 ml IVFLUSH QSHIFT [facility] Last Admin: 08/25/23 08:25 Dose: 3 ml Documented By: JYOTI Vitamin D (Cholecalciferol (Vitamin D3) 25 Mcg Tablet) 50 mcg PO DAILY [facility] Last Admin: 08/25/23 08:26 Dose: 50 mcg Documented By: JYOTI Labs 08/25/23 06:41 08/25/23 06:41 Labs: Laboratory Results - last 24 hr 08/24/23 08/24/23 08/25/23 16:21 20:27 06:41 MCV 85.7 MCH 27.7 MCHC 32.3 RDW 15.7 Plt Count 209 MPV 9.5 Absolute Nucleated RBC 0.000 Nucleated RBC % (auto) 0.0 Anion Gap 14 Estim Creat Clear Calc 33.5 Estimated GFR 27 POC Glucose 86 113 Random Glucose 116 H Calcium 9.1 Magnesium 2.2 B-Natriuretic Peptide 518 H Vitamin B12 403 Folate > 20.0 Random Vancomycin 08/25/23 08/25/23 08/25/23 07:20 09:13 10:58 MCV MCH MCHC RDW Plt Count MPV Absolute Nucleated RBC Nucleated RBC % (auto) Anion Gap Estim Creat Clear Calc Estimated GFR POC Glucose 106 104 Random Glucose Calcium Magnesium B-Natriuretic Peptide Vitamin B12 Folate Random Vancomycin 17.2 Assessment and Plan (1) Cellulitis: Status: Acute (2) Acute on chronic anemia: Status: Acute Plan d7 67yo F with DM2, HTN, HLD, COPD, GEORGETTE noncompliant with CPAP, recently diagnosed RA on MTX presenting with BLE swelling, admitted for LLE cellulitis LLE cellulitis unstageable coccygeal pressure injury - vanco d7, pip-cyndi d5 - wound care: 1. Turn and Reposition every 2 hours and as needed for patient comfort. 2. Off Load all bony prominences with use of pillows and heel boots. 3. Monitor for incontinence and moisture control. 4. Provide adequate and supplemental nutrition. 5. Order or Continue low air loss mattress. 6. Maintain blood glucose levels per Providers orders. 7. Coccyx - Off Load Pressure - Cleanse with PH balances wipes or spray, pat dry. Apply thin layer of Triad - cover with Foam dressing change daily and PRN. 8. Left Leg - Elevate Left lower leg - Cleanse with NS, pay dry. Apply single layer xeroform to wound beds cover with dry gauze wrap, change daily. - will need outpt Wound Care f/u NSVT - Cardiology consulted, consider outpt Holter/stress test. TTE 08/24/23 essentially normal. acute/chronic normocytic anemia - transfused 2u PRBCs 12/4, with appropriate response in H+H - has iron deficiency, will start repletion DM2 - correction-dose lispro HTN - lisinopril-HCTZ CKD3 - SCr around baseline, monitor + avoid nephrotoxins RA - resumed MTX hypothyroidism - continue LT4 VTE ppx - LMWH dispo - anticipate home with VNA for wound care In my clinical judgment, the patient requires continued inpatient hospitalization for the following reasons: IV ABX Total time managing care of this patient today: 35 minutes. Quality Stroke Does the patient have a stroke diagnosis?: No VTE Prior VTE?: No VTE Risk Level:: Medical - moderate - high VTE Device Contraindication: Treatment Not Indicated VTE Drug Contraindication: N/A - Med Ordered
[2023-08-25 13:54] LABS: OBS Int Ctl Valid YES; OBS1 NEGATIVE (NEGATIVE)
[2023-08-25] MEDS: Ferrous Sulfate 324 MG TABLET.DR PO (14:07)
[2023-08-25 15:15] LABS: Glucose, Whole Blood 115 mg/dL (60-115)
[2023-08-25 15:42] VITALS: BP 162/68; PULSE 82; RESP 20; TEMP 36.9; O2SAT 97
[2023-08-25 20:00] VITALS: BP 158/64; PULSE 79; RESP 18; TEMP 36.9; O2SAT 97
[2023-08-25 20:56] LABS: Glucose, Whole Blood 113 mg/dL (60-115)
[2023-08-25 23:47] VITALS: BP 128/58; PULSE 69; RESP 18; TEMP 37.1; O2SAT 96
[2023-08-26] MEDS: 0.9 % Sodium Chloride Flush 3 ML SYRINGE IVFLUSH ×2 (00:05→07:59)
[2023-08-26] MEDS: Morphine Sulfate 4 MG/ML CARTRIDGE IVPUSH ×3 (01:03→09:28)
[2023-08-26] MEDS: Piperacillin Sodium/Tazobactam 3.375 GM in 0.9 % Sodium Chloride 50 ML IV ×2 (03:34→07:58)
[2023-08-26 04:00] VITALS: BP 128/60; PULSE 70; RESP 18; TEMP 36.9; O2SAT 97
[2023-08-26] MEDS: Levothyroxine Sodium 112 MCG, Levothyroxine Sodium 25 MCG 137 MCG PO (05:48)
[2023-08-26 07:08] LABS: Hematocrit 28.5 % (37.0-47.0); Hemoglobin 9.2 g/dl (12.0-16.0); Mean Corpuscular HGB Conc 32.3 g/dl (31.0-35.0); Mean Corpuscular Hemoglobin 27.6 pg (27.0-33.0); Mean Corpuscular Volume 85.6 fL (80.0-98.0); Mean Platelet Volume 9.9 fL (9.4-12.3); Platelet Count 211 X10*3/uL (160-400); Red Blood Count 3.33 X10*6/uL (4.20-5.50); Red Cell Distribution Width 16.1 % (11.0-16.0); White Blood Count 4.1 X10*3/uL (4.8-10.8)
[2023-08-26 07:11] LABS: Glucose, Whole Blood 113 mg/dL (60-115)
[2023-08-26 07:21] LABS: Anion Gap 12 (12-20); Blood Urea Nitrogen 26 mg/dL (9-16); C Reactive Protein 5.91 mg/dL (< or = 0.50); Calcium 8.6 mg/dL (8.4-10.2); Carbon Dioxide 23 mmol/L (22-29); Chloride 105 mmol/L (96-108); Creatinine Clr Calc Pharmacy 35.9; Estimated Glomerular Filt Rate 29; Glucose Random 117 mg/dL (60-115); Magnesium 2.1 mg/dL (1.6-2.6); Potassium 3.6 mmol/L (3.3-5.1); Sodium 136 mmol/L (135-145)
[2023-08-26 07:33] VITALS: BP 137/64; PULSE 70; RESP 20; TEMP 36.7; O2SAT 95
[2023-08-26] MEDS: lisinopriL 10 MG, hydroCHLOROthiazide 12.5 MG PO (07:57)
[2023-08-26] MEDS: Pravastatin Sodium 40 MG TABLET PO (07:57)
[2023-08-26] MEDS: Folic Acid 1 MG TABLET PO (07:58)
[2023-08-26] MEDS: Cholecalciferol (Vitamin D3) 25 MCG TABLET 50 MCG PO (07:58)
[2023-08-26] MEDS: Ascorbic Acid 500 MG TABLET PO (07:58)
[2023-08-26] MEDS: Enoxaparin Sodium 40 MG/0.4 ML SYRINGE SUBCUT (07:58)
[2023-08-26] MEDS: Ferrous Sulfate 324 MG TABLET.DR PO (07:58)
[2023-08-26] MEDS: Furosemide 20 MG TABLET PO (08:03)
--- NOTE | 2023-08-26 09:33 | HO.WOUND ---
Wound Consult: Follow up 67yr old female admitted to [facility] on?08/19/23 09:20 - See progress notes and H&P for detailed history. Wound consult placed for Coccyx and Left Lower Leg re-assessment prior to discharge to home with VNA. 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 Pt demonstrates understanding of steps to proper dressing changes and follow up care and when to see medical attention -teach back provided. Coccyx remains Unstageable Pressure Injury Present on Admission however resolving at todays assessment - less adherent slough noted - less maceration in periwound, pt reports less discomfort. No induration no fluctuance and no warmth noted - pt has red blanchable tissue in the periwound consistent with MASD. Recommend no new topical orders continue with Triad cream - pt demonstrates understanding of application. Left Lower Leg Improving Cellulitis - many areas resurfacing - newly epithelialized tissue noted continue to protect with xeroform while tissue is still fragile. The macerated areas around the open wounds can be treated with light Triad (Zinc ) application to aid in moisture management and tissue protection. Recommendations: 1. Turn and Reposition every 2 hours and as needed for patient comfort. 2. Off Load all bony prominences with use of pillows and heel boots. 3. Monitor for incontinence and moisture control. 4. Provide adequate and supplemental nutrition. 5. Order or Continue low air loss mattress. 6. Maintain blood glucose levels per Providers orders. 7. Coccyx - Off Load Pressure - Cleanse with PH balances wipes or spray, pat dry. Apply thin layer of Triad twice daily and as needed. 8. Left Leg - Elevate Left lower leg - Cleanse with NS, pat dry. Apply Triad cream to the white macerated tissue around the wound bed, apply single layer xeroform to wound beds, cover with dry ABD pad, followed by gauze wrap, change daily. Re-consult wound care Nurse for wound deterioration.
[2023-08-26 11:17] LABS: Glucose, Whole Blood 132 mg/dL (60-115)
[2023-08-26 11:22] VITALS: BP 142/59; PULSE 74; RESP 20; TEMP 37.3; O2SAT 99
--- NOTE | 2023-08-26 11:44 | MHC.CM.PN ---
PT MEDICALLY CLEARED FOR D/C HOME W/NEW [facility] FOR WOUND CARE, PT TO BE SENT W/SUPPLIES AND PT'S RIDE WILL TRANSPORT AT 1PM.
[2023-08-26] MEDS: vancomycin HCL 1,000 MG in 0.9 % Sodium Chloride 250 ML 270 MG IV (12:12)
--- NOTE | 2023-08-26 12:26 | P.F2F_ITS ---
Service Date Service Date: 08/26/23 Encounter Date of encounter: 08/26/23 Reasons for Services Signs and symptoms assessed: wound care Reason for halfway: wound care MD Overseeing Care: Angel Goldsmith Homebound: Leaving the home is medically contraindicated at this time without the asist of a device and/or another person due th the listed conditions above and below. Reason homebound: immunosuppression / infection risk and weakness related to hospital stay Homebound supporting statement: see Discharge Summary for wound care instructions Certification: Based on the above findings, I certify that this patient is confined to the home and needs intermittent halfway care, physical therapy and/or speech therapy, or continues to need occupational therapy. The patient is under my care, and I have initiated the establishment of the plan of care. The patient will be followed by a physician who will periodically review the plan of care. Time Spent With Patient Time: Total time managing care of this patient today ____ minutes.
--- NOTE | 2023-08-26 12:27 | P.DS_ITS ---
DS: Providers Provider Date of Service: 08/26/23 Date of admission: 08/19/23 09:20 Primary care physician: Angel Goldsmith MD Consults: 08/20/23 16:43 Consult to Wound Care Routine Reason for consultation: stage 2 coccyx Has provider been notified: Yes 08/25/23 07:48 Consult to Cardiology Routine Consulting Provider: [facility] Cardiovascular Services Reason for consultation: 14 beat VT, elev BNP but normal TTE DS: Diagnosis Discharge Diagnosis (1) Cellulitis: Status: Acute (2) Acute on chronic anemia: Status: Acute (3) Iron deficiency anemia: Status: Acute (4) NSVT (nonsustained ventricular tachycardia): Status: Acute (5) Lower extremity edema: Status: Acute (6) Pressure injury of coccygeal region, unstageable: Status: Acute (7) Type 2 diabetes mellitus: Status: Acute (8) CKD stage 3 secondary to diabetes: Status: Acute DS: Summary Hospital Course Hospital Course: From the history and physical by the admitting hospitalist, Huey Healy MD, 08/19/23: This is a 67 year old female with a PMH of DM, HTN, HLD, COPD, GEORGETTE non- compliant with CPAP and recently diagnosed RA (started on methotrexate in the last month) who presents to the ED with complaints of lower extremity swelling L > R, associated redness, pain and discomfort. The patient reports bilateral LE swelling for the last 2 months. She reports it has slowly progressed and she presented to [facility] [place] [place] ED about 10 days prior to admission for the same complaint. At that time, she was prescribed 20mg of lasix and discharged home. She now returns with LLE erythema, open wounds and foul smelling drainage. She reports generalized weakness and malaise, but denies fevers or chills. She reports inability to sleep in the supine positon, but states that is due to her neck/history of migranes. She denies sob, chest pain. Of note, the patient was recently diagnosed with RA and was initiated on methotrexate within the last 1 month. In the ED, patients work up was similar to her last presentation. She has normocytic anemia, SCr 1.61, BNP 162; HS trop is 20 (was 30s last ED visit); EKG shows evidence of LVH. She was given a dose of IV lasix and a dose of IV zosyn. She will now be admitted for further work up and treatment. 67yo F with DM2, HTN, HLD, COPD, GEORGETTE noncompliant with CPAP, recently diagnosed RA on MTX presenting with BLE swelling, admitted for LLE cellulitis hospital course by problem: LLE cellulitis unstageable coccygeal pressure injury - treated with 7 days of IV doxycycline and 5 days of IV piperacillin-tazobactam with improvement - wound care: 7. Coccyx - Off Load Pressure - Cleanse with PH balances wipes or spray, pat dry. Apply thin layer of Triad twice daily and as needed. 8. Left Leg - Elevate Left lower leg - Cleanse with NS, pat dry. Apply Triad cream to the white macerated tissue around the wound bed, apply single layer xeroform to wound beds, cover with dry ABD pad, followed by gauze wrap, change daily. - will need outpt Wound Care f/u - discharged on 3 days of PO vancomycin and 3 days of PO amoxicillin-clavulanate NSVT - 1 episode of 14 beats of NSVT. Cardiology consulted, consider outpt Holter/stress test. TTE 08/24/23 essentially normal. acute/chronic normocytic anemia - transfused 2u PRBCs 08/22, with appropriate response in H+H. FOBT negative. Has iron deficiency, started PO repletion. DM2 CKD3 - Creatinine around baseline; should not use metformin at this CrCl. She was discharged home with VNA services for wound care. Time Attestation Total time managing care of this patient today: 45 mintues. Discharge coordination time: Greater than 30 minutes Quality: Safe Use of Opioids Does Pt have an Active Cancer Diagnosis on the Problem List?: No Quality: Stroke Does the patient have a stroke diagnosis?: No Physical Exam Vital Signs: Vital Signs: Last Vital Signs Temp 99.2 F 08/26/23 11:22 Pulse 74 08/26/23 11:22 Resp 20 08/26/23 11:22 BP 142/59 H 08/26/23 11:22 Pulse Ox 99 08/26/23 11:22 O2 Del Method Room Air 08/26/23 11:22 BMI result Body Mass Index 39.6 Gen: in no acute distress HEENT: sclera anicteric, moist mucus membranes Neck: supple Lungs: clear to auscultation bilaterally Heart: regular rate and rhythm, no murmurs Abd: soft, non-tender, non-distended Ext: 1+ pitting edema BLE Skin: some residual patchy erythema LLE but no purulent drainage, much improved from admission Neuro: alert and oriented x3, no focal findings Psych: appropriate affect DS: Data Data Completed and Pending Completed studies during hospitalization [Text1]: Laboratory Results WBC 4.1 X10*3/uL (4.8-10.8) L 08/26/23 06:30 RBC 3.33 X10*6/uL (4.20-5.50) L 08/26/23 06:30 Hgb 9.2 g/dl (12.0-16.0) L 08/26/23 06:30 Hct 28.5 % (37.0-47.0) L 08/26/23 06:30 MCV 85.6 fL (80.0-98.0) 08/26/23 06:30 MCH 27.6 pg (27.0-33.0) 08/26/23 06:30 MCHC 32.3 g/dl (31.0-35.0) 08/26/23 06:30 RDW 16.1 % (11.0-16.0) H 08/26/23 06:30 Plt Count 211 X10*3/uL (160-400) 08/26/23 06:30 MPV 9.9 fL (9.4-12.3) 08/26/23 06:30 Immature Gran % (Auto) 0.4 % (0.0-0.4) 08/24/23 07:15 Neut % (Auto) 41.4 % (45-73) L 08/24/23 07:15 Lymph % (Auto) 45.1 % (20-40) H 08/24/23 07:15 [place] % (Auto) 6.7 % (2-11) 08/24/23 07:15 Eos % (Auto) 6.0 % (0-4) H 08/24/23 07:15 Baso % (Auto) 0.4 % (0-2) 08/24/23 07:15 Lymph # (Auto) 1.3 X10*3/uL (1.2-4.9) 08/24/23 07:15 [place] # (Auto) 0.2 X10*3/uL (0.1-1.2) 08/24/23 07:15 Eos # (Auto) 0.2 X10*3/uL (0.0-0.4) 08/24/23 07:15 Baso # (Auto) 0.0 X10*3/uL (0.0-0.2) 08/24/23 07:15 Abs Immat Gran (auto) 0.01 X10*3/uL (0.00-0.03) 08/24/23 07:15 Absolute Neuts (auto) 1.2 x10*3/uL (2.0-8.3) L 08/24/23 07:15 Absolute Nucleated RBC 0.000 X10*3/uL (0.0-0.012) 08/26/23 06:30 Nucleated RBC % (auto) 0.0 /100WBC (0.0-0.2) 08/26/23 06:30 Absolute Retic 0.043 X10*6/uL (0.026-0.095) 08/24/23 07:15 Absolute Retic Cancelled 08/24/23 07:15 Percent Retic 1.4 % (0.5-1.8) 08/24/23 07:15 Percent Retic Cancelled 08/24/23 07:15 Immature Retic Fraction 31.9 % (3.0-15.9) H 08/24/23 07:15 Immature Retic Fraction Cancelled 08/24/23 07:15 Retic Hgb Equivalent 36.8 pg (30.0-35.0) H 08/24/23 07:15 Retic Hgb Equivalent Cancelled 08/24/23 07:15 Hold Purple Top SEE NOTE 08/23/23 09:20 Sodium 136 mmol/L (135-145) 08/26/23 06:30 Potassium 3.6 mmol/L (3.3-5.1) 08/26/23 06:30 Chloride 105 mmol/L (96-108) 08/26/23 06:30 Carbon Dioxide 23 mmol/L (22-29) 08/26/23 06:30 Anion Gap 12 (12-20) 08/26/23 06:30 BUN 26 mg/dL (9-16) H 08/26/23 06:30 Creatinine 1.73 mg/dL (0.5-1.4) H 08/26/23 06:30 Estim Creat Clear Calc 35.9 08/26/23 06:30 Estimated GFR 29 08/26/23 06:30 POC Glucose 132 mg/dL (60-115) H 08/26/23 11:11 Random Glucose 117 mg/dL (60-115) H 08/26/23 06:30 Fasting Glucose 115 mg/dL (60-99) H 08/24/23 07:15 Calcium 8.6 mg/dL (8.4-10.2) 08/26/23 06:30 Magnesium 2.1 mg/dL (1.6-2.6) 08/26/23 06:30 Iron 23 mcg/dL (30-160) L 08/24/23 07:15 TIBC 235 mcg/dL (228-428) 08/24/23 07:15 % Saturation 10 % (15-50) L 08/24/23 07:15 Unsat Iron Binding 212 ug/dL 08/24/23 07:15 Ferritin 112 ng/mL (10-250) 08/24/23 07:15 Total Bilirubin 0.4 mg/dL (0.0-1.0) 08/24/23 07:15 AST 23 U/L (5-31) 08/24/23 07:15 ALT 63 U/L (0-31) H 08/24/23 07:15 Alkaline Phosphatase 87 U/L (39-117) 08/24/23 07:15 Lactate Dehydrogenase 180 U/L (122-220) 08/24/23 07:15 Troponin I High Sens 21.5 ng/L (<3.5-17.0) H 08/19/23 07:53 C-Reactive Protein 5.91 mg/dL (< or = 0.50) H 08/26/23 06:30 B-Natriuretic Peptide 518 pg/mL (<100) H 08/25/23 06:41 Total Protein 6.3 g/dL (6.5-8.0) L 08/24/23 07:15 Albumin 3.0 g/dL (3.5-5.0) L 08/24/23 07:15 Vitamin B12 403 pg/mL (200-900) 08/25/23 06:41 Folate > 20.0 ng/mL (> or = 4.0) 08/25/23 06:41 Urine Color Yellow 08/19/23 09:30 Urine Appearance Cloudy 08/19/23 09:30 Urine pH 5.5 (5.0-9.0) 08/19/23 09:30 Ur Specific [place] <= 1.005 (1.005-1.025) 08/19/23 09:30 Urine Protein Negative mg/dL (Neg-Trace) 08/19/23 09:30 Urine Glucose (UA) Negative mg/dL (Negative) 08/19/23 09:30 Urine Ketones Negative mg/dL (Negative) 08/19/23 09:30 Urine Blood Negative (Negative) 08/19/23 09:30 Urine Nitrite Negative (Negative) 08/19/23 09:30 Ur Leukocyte Esterase Negative (Negative) 08/19/23 09:30 Stool Occult Blood NEGATIVE (NEGATIVE) 08/25/23 10:30 Random Vancomycin 17.2 mcg/mL (15-20) 08/25/23 09:13 Blood Type A Positive 08/22/23 09:01 Antibody Screen NEGATIVE 08/22/23 09:01 Crossmatch See Detail 08/22/23 09:01 Impressions Chest X-Ray 08/19/23 08:33 IMPRESSION: Unremarkable examination. Discharge Plan Discharge Anticipated Discharge Date/Time: 08/26/23 12:22 Patient Disposition: Home Health Service Discharge Diagnosis: LLE cellulitis unstageable coccygeal pressure injury non-sustained ventricular tachycardia iron deficiency anemia type 2 diabetes CKD stage 3 Referrals: Yunior OAKLEY [Outside] - 1 Day (SHELTER FOR WOUND CARE, A NURSE WILL BE CONTACTING YOU TO ARRANGE START OF CARE WITHIN 48HRS OF DISCHARGE. ) Angel Goldsmith MD [Primary Care Provider] - 1 Week Ra Rojas MD [Physician] - 2 Weeks Discharge Medications: New ferrous sulfate 324 mg (65 mg iron) Tablet,Delayed Release (Dr/Ec) 324 mg PO DAILY Qty: 30 0RF amoxicillin-pot clavulanate 875-125 mg tablet 1 tab PO BID Qty: 10 0RF doxycycline monohydrate 100 mg tablet 100 mg PO BID Qty: 6 0RF oxycodone 5 mg tablet 5 mg PO DAILY PRN (Reason: prior to wound care) Qty: 7 0RF Rx Instructions: Partial Fill upon patient request. Continued furosemide [Lasix] 20 mg tablet 20 mg PO Q OTHER DAY Qty: 10 0RF methotrexate sodium 2.5 mg tablet 15 mg PO WE@0900 folic acid 1 mg tablet 1 mg PO DAILY ascorbic acid (vitamin C) [Vitamin C] 500 mg Tablet 500 mg PO DAILY ferrous sulfate 325 mg (65 mg iron) Tablet 325 mg PO DAILY albuterol sulfate 90 mcg/actuation HFA aerosol inhaler 1 - 2 puff inhalation Q4H PRN (Reason: Shortness Of Breath) lisinopril-hydrochlorothiazide 10-12.5 mg tablet 1 tab PO DAILY pravastatin 40 mg tablet 40 mg PO DAILY levothyroxine 137 mcg tablet 137 mcg PO DAILY cholecalciferol (vitamin D3) 50 mcg (2,000 unit) capsule 50 mcg PO DAILY Discontinued metformin 500 mg tablet 500 mg PO DAILY Discharge Orders: Discharge Order (Routine); Ordered 08/26/23 Ordered By: Everardo Meeks Diet: Diabetic diet Activity on Discharge: As tolerated Stand Alone Forms: Patient Portal Discharge page Activity Restrictions/Additional Instructions: Topical Wound Care Recommendations: 1. Turn and Reposition every 2 hours and as needed for patient comfort. 2. Off Load all bony prominences with use of pillows - limit sit time to 2 hr increments. 3. Maintain blood glucose levels per Providers orders. 7. Coccyx - Cleanse with routine bathing / care, pat dry. Apply thin layer of Triad twice daily and as needed. 8. Left Leg - Elevate left lower leg - Cleanse with NS, pat dry. Apply Triad cream to the white macerated tissue around the wound bed, apply single layer xeroform to wound beds, cover with dry ABD pad, followed by gauze wrap, change daily. Care Plan Goals: wound healing infection cure Health Concerns: LLE cellulitis - doxycycline 100 mg twice daily x 3 days - amoxicillin-clavulanate 875-125 mg twice daily x 5 days - Elevate left lower leg - Cleanse with NS, pat dry. Apply Triad cream to the white macerated tissue around the wound bed, apply single layer xeroform to wound beds, cover with dry ABD pad, followed by gauze wrap, change daily. unstageable coccygeal pressure injury - Cleanse with routine bathing / care, pat dry. Apply thin layer of Triad twice daily and as needed. non-sustained ventricular tachycardia - follow up with [facility] Cardiology in 2 weeks iron deficiency anemia - take iron as prescribed type 2 diabetes CKD stage 3 - stop metformin due to CKD Please follow up with your primary care doctor within 1 week. Return to the hospital if you experience recurrent or worsening symptoms. Plan of Treatment: see above Assessment: See Discharge Summary.
--- NOTE | 2023-08-27 14:52 | P.CDIM_ITS ---
PROVIDER RESPONSE TEXT: To clarify, the appropriate diagnosis supported by the clinical indicators: Iron deficiency anemia QUERY TEXT: PHYSICIAN'S DOCUMENTATION REQUEST Date of Query: 08/24/2023 12:40 PM EST Patient Name: Mariana Coleman Admit Date: 08/19/2023 Dear Everardo Meeks, A review of the medical record indicates additional documentation may be needed. Please review below and update the documentation accordingly. Clinical Indicators: PN: Acute/chronic normocytic anemia Transfused 2 units PRBC 08/22 has iron deficiency LABS: iron 23 L H/H 6.9/22.7 Based on the above, could you clarify which of the following is the most likely type of anemia you ar e evaluating, treating, and/or monitoring? Iron deficiency anemia Iron deficiency anemia secondary to chronic blood loss Iron deficiency anemia secondary to acute on chronic blood loss Other (explain) Clinically unable to determine (explain) Thank you, Evonne Grubbs, CCS, CDIS Use of terms such as suspected, likely, concern for, or probable (associated with a specific diagnosi s that is being evaluated, monitored, or treated as if it exists) are acceptable and can be coded in the inpatient se tting, when documented at the time of discharge. Please use your independent medical judgment in providing your response. THIS QUERY IS PART OF THE PERMANENT MEDICAL RECORD
--- NOTE | 2023-08-27 14:52 | P.CDIM_ITS ---
PROVIDER RESPONSE TEXT: To clarify, the appropriate diagnosis supported by the clinical indicators: Other (explain): Obesity QUERY TEXT: PHYSICIAN'S DOCUMENTATION REQUEST Date of Query: 08/25/2023 08:23 AM EST Patient Name: Mariana Coleman Admit Date: 08/19/2023 Dear Everardo Meeks, A review of the medical record indicates additional documentation may be needed. Please review below and update the documentation accordingly. Clinical Indicators: Nursing notes Height and Weight: BMI 39.6 Obese class II 101.5kg If possible, please provide an associated diagnosis related to the abnormal BMI, such as: Overweight Obesity Due to excess calories Obesity Drug induced Obesity Due to other cause Specify the other cause Severe or Morbid Obesity With alveolar hypoventilation Severe or Morbid Obesity Without alveolar hypoventilation BMI is not significant Other (explain) Clinically unable to determine (explain) Thank you, Evonne Grubbs, CCS, CDIS Use of terms such as suspected, likely, concern for, or probable (associated with a specific diagnosi s that is being evaluated, monitored, or treated as if it exists) are acceptable and can be coded in the inpatient se tting, when documented at the time of discharge. Please use your independent medical judgment in providing your response. THIS QUERY IS PART OF THE PERMANENT MEDICAL RECORD
== END 2023-08-26 13:36 | disposition home health service (06) | DRG 603 ==
LOC: HO.ED 09:16 → HO.EDOVER 10:42 → HO.IMC 08-20 14:49
PROVIDERS: Hospitalist; Physician Assistant; Admitting Provider Family Medicine; Emergency Provider Emergency Medicine Emergency Medical Services; PCP Internal Medicine; Visit Provider Family Medicine
DX: L03.115 Cellulitis of right lower limb (principal); D84.821 Immunodeficiency due to drugs; I47.20 Ventricular tachycardia, unspecified; J44.9 Chronic obstructive pulmonary disease, unspecified; I12.9 Hypertensive chronic kidney disease with stage 1 through stage 4 chronic kidney disease, or unspecified chronic kidney disease; N18.30 Chronic kidney disease, stage 3 unspecified; E66.9 Obesity, unspecified; Z68.39 Body mass index [BMI] 39.0-39.9, adult; E11.22 Type 2 diabetes mellitus with diabetic chronic kidney disease; D50.9 Iron deficiency anemia, unspecified; L89.159 Pressure ulcer of sacral region, unspecified stage; D63.1 Anemia in chronic kidney disease; G47.33 Obstructive sleep apnea (adult) (pediatric); E03.9 Hypothyroidism, unspecified; M06.9 Rheumatoid arthritis, unspecified; L03.116 Cellulitis of left lower limb; Z87.891 Personal history of nicotine dependence; Z79.631 Long term (current) use of antimetabolite agent; Z79.890 Hormone replacement therapy; Z79.899 Other long term (current) drug therapy
CPT/HCPCS: 36415; 71045; 80048; 80053; 80202; 81003; 82272; 82565; 82607; 82728; 82746; 82947; 83540; 83615; 83735; 83880; 84484; 85025; 85027; 85045; 86140; 86850; 86900; 86901; 86923; 93005; 93306; 97161; 99285; J1650; J1940; J2270; J2543; J3370; P9016; Q9957

== ENCOUNTER → 2023-08-19 07:47 | Outpatient (BNV) | payer MEDICARE, SELFPAY | PROVIDERS: Emergency Provider Emergency Medicine Emergency Medical Services; PCP Internal Medicine; Visit Provider Family Medicine | DX: L03.116 Cellulitis of left lower limb (principal); D50.9 Iron deficiency anemia, unspecified; I47.29 Other ventricular tachycardia; R60.0 Localized edema; L89.150 Pressure ulcer of sacral region, unstageable; E11.22 Type 2 diabetes mellitus with diabetic chronic kidney disease; N18.30 Chronic kidney disease, stage 3 unspecified | CPT/HCPCS: 99223; 99232; 99233; 99239; G0180 ==

== ENCOUNTER → 2023-08-19 08:46 | Outpatient (BNV) | payer MEDICARE, SELFPAY | PROVIDERS: Admitting Provider Family Medicine; Emergency Provider Emergency Medicine Emergency Medical Services; PCP Internal Medicine; Visit Provider Internal Medicine Cardiovascular Disease | DX: I47.10 Supraventricular tachycardia, unspecified (principal); R94.31 Abnormal electrocardiogram [ECG] [EKG] | CPT/HCPCS: 93010 ==

== ENCOUNTER 2023-08-19 09:20 | Outpatient (BNV) | payer MEDICARE, SELFPAY | END 2023-08-24 08:18 | PROVIDERS: Admitting Provider Family Medicine; Emergency Provider Emergency Medicine Emergency Medical Services; PCP Internal Medicine; Visit Provider Internal Medicine | DX: I34.81 Nonrheumatic mitral (valve) annulus calcification (principal) | CPT/HCPCS: 93306 ==

== ENCOUNTER → 2023-08-19 09:20 | Outpatient (BNV) | payer MEDICARE, SELFPAY | PROVIDERS: Admitting Provider Family Medicine; Emergency Provider Emergency Medicine Emergency Medical Services; PCP Internal Medicine; Visit Provider Internal Medicine | DX: I47.29 Other ventricular tachycardia (principal) | CPT/HCPCS: 99223 ==

== ENCOUNTER → 2023-10-17 09:37 | Outpatient (REF) | payer MEDICARE, SELFPAY ==
--- NOTE | ~2023-10-17 | NM_ITS ---
Myocardial perfusion study Indication: Precordial chest pain to evaluate for myocardial ischemia Technique: The patient was brought in for a Lexiscan perfusion study on 10/17/2023. Patient performed low-level exercise and was injected 0.4 mg of Lexiscan intravenously. Within a minute of injection, 30 mCi of sestamibi was given intravenously. Images were obtained using the SPECT gamma camera interlaced with the gating device. Images were obtained in supine position. Resting perfusion study was performed on 10/24/2023. Patient was administered 30 mCi of sestamibi intravenously at rest. Images were then obtained in supine position. Images obtained with and without CT attenuation. Total DLP 103 mGy-cm. Images were processed with the software and compared side to side in short axis, horizontal long axis and vertical long axis views. Findings: The stress perfusion study showed show mildly reduced uptake in the lateral probably moderately reduced uptake in the inferior wall although this is difficult to determine due to subdiaphragmatic uptake interfering with inferior wall uptake. LV cavity is dilated. Attenuated corrected images show diffusely reduced uptake of mild intensity in all segments with moderately reduced uptake in the apex.. The gated study shows reduced LV systolic function with calculated LVEF of 40%. LV cavity is moderately dilated size. The gated study shows normal wall thickening and contraction of segments. Resting study shows non attenuated images show improved uptake in the distal lateral wall as well as minimally uptake in the inferior wall of the LV myocardium. Attenuation corrected uptake shows improved uptake in all segments of LV myocardium.. Gating at rest reveals normal systolic wall motion with ejection fraction at 52%. The findings are consistent with attenuated corrected images show diffuse three-vessel ischemia, clinical correlation recommended. There Is presence of transient ischemic dilatation. There is also reduced ejection fraction with stress which is improved at rest NM/NM cardiolite stress test Impression: 1. Myocardial perfusion imaging study shows equivocal for diffuse 3 vessel ischemia 2. Gated LVEF is 40% with stress and 52% with rest% 3. Transient ischemic dilatation present EKG is nondiagnostic for ischemia
--- NOTE | 2023-10-17 09:40 | HM_ITS ---
* Total monitoring time 7 days. * Underlying rhythm is sinus with an average ventricular rate of 81/Min. * Occasional supraventricular ectopy with a burden of 1.1%. Very brief runs noted. * Rare ventricular ectopy with a burden of 0.26%. One run of 4 beats, unifocal. * No significant pauses or AV blocks. * No patient markers or diary events. MTDD
--- NOTE | 2023-10-17 09:40 | CA_ITS ---
Acquisition Time: 2023-10-17 09:45:34 Total Exercise Time: 00:02:00 Test Indications: CP Medications: SEE H Protocol: LEXISCAN Max HR: 105 BPM 69% of Pred: 152 BPM Max BP: 128/060 mmHG Max Work Load: 1.0 METS Pharmacological stress test with Lexiscan injection while sitting and kicking her legs, without anginal symptoms, with isolated PACs , with normotensive response to injection, with nondiagnoisitic EKGs. Aminophylline 75mg IVP given to reverse Lexiscan. Nuclear images pending. Test reviewed with Dr. Khan. Referred By: Ra Rojas Overread By: Lucie Fan
== END ==
LOC: HO.CARD 09:37
PROVIDERS: PCP Internal Medicine; Visit Provider Internal Medicine
DX: R07.2 Precordial pain (principal); I20.9 Angina pectoris, unspecified; I47.29 Other ventricular tachycardia
CPT/HCPCS: 78452; 93017; 93242; A9500; J0280; J2785

== ENCOUNTER → 2023-10-17 09:40 | Outpatient (BNV) | payer MEDICARE, SELFPAY | PROVIDERS: PCP Internal Medicine; Visit Provider Nurse Practitioner | DX: I47.10 Supraventricular tachycardia, unspecified (principal) | CPT/HCPCS: 78452; 93016; 93018; 93244 ==

== ENCOUNTER 2023-10-28 10:10 | Outpatient (AMB) | payer MEDICARE, SELFPAY ==
--- NOTE | 2023-10-28 10:12 | A.OFFVIS_ITS ---
Intake Vital Signs 10/28/23 10:14 Height 5 ft 3 in Weight 211 lb 10.3 oz BMI 37.5 BP 144/60 H Blood Pressure Location Lt brachial Position Sitting Pulse 95 Intake Visit Reasons: [facility] f/u after testing ([facility]) Intake Note: [facility] – [place] Well Service Floorperson Required: No Accompanied by: Self / Same As Patient Allergies codeine Allergy (Severe, Verified 10/28/23 10:14) Anaphylaxis ibuprofen Adverse Reaction (Mild, Verified 10/28/23 10:14) Hives tramadol Adverse Reaction (Mild, Verified 10/28/23 10:14) Hives Medication List - Last Reconciled 10/28/23 by Terri Serrano MEDICAL MANAGEMENT SPECIALIST-C albuterol sulfate 90 mcg/actuation 1 - 2 puffs inhalation Q4H PRN ascorbic acid (vitamin C) (Vitamin C) 500 mg PO DAILY cholecalciferol (vitamin D3) 50 mcg PO DAILY doxycycline monohydrate 100 mg PO BID ferrous sulfate 324 mg PO DAILY folic acid 1 mg PO DAILY levothyroxine 137 mcg PO DAILY lisinopril-hydrochlorothiazide 10-12.5 mg 1 tab PO DAILY methotrexate sodium 15 mg PO WE@0900 pravastatin 40 mg PO DAILY HPI [facility] – [place] f/u after testing (HS) HPI Details Mariana is a 68-year-old female with past medical history of hypertension, hyperlipidemia, diabetes, CKD who was recently admitted to [facility] for cellulitis of her left lower extremity. During her admission she was noted to have a 14 beat run of NSVT. An echocardiogram showed normal EF. She underwent outpatient stress test and Holter monitor and now presents for follow-up. Today she reports that she has been doing well since her hospital discharge. Her left leg cellulitis has resolved. She continues to have some mild swelling in her lower extremities which she says is chronic. She has no chest discomfort at rest or with activity. No concerning shortness of breath. No PND, or thopnea. No lightheadedness, presyncope, syncope, falls. She does have some fatigue which she relates to anemia. Tolerates normal ADLs. [facility] Medical History (Updated 10/28/23 @ 11:21 by Terri Serrano, MEDICAL MANAGEMENT SPECIALIST-C) NSVT (nonsustained ventricular tachycardia) Hypertension Obstructive sleep apnea of adult Thyroid activity decreased Cervical spondylosis Migraine headache without aura Diabetes COPD (chronic obstructive pulmonary disease) Surgical History H/O: hysterectomy Social History Household Members: None Housing: Apartment Do you presently have visiting nurse or other home services: No Alcohol intake: never Comment: Supervise assist Patient Tobacco Use Status: Former Tobacco user Quit Date: 2021 e-Cigarette/Vaping Use: Never Used Second Hand Smoke Exposure: No service: No Review of Systems Const All systems reviewed & are unremarkable except as noted in HPI and below Reports fatigue and Denies lethargy Card Denies chest pain, Denies chest pain at rest, Denies chest pain with activity, Denies rapid heart rate, Denies palpitations, Denies dyspnea, Denies dyspnea on exertion and Denies orthopnea Resp Denies dyspnea and Denies dyspnea on exertion Musc Details: mild swelling in lower legs Denies abnormal gait Neuro Denies abnormal gait Endo Reports fatigue and Denies palpitations Physical Exam Vital Signs: Last Vital Signs Pulse 95 10/28/23 10:14 BP 144/60 H 10/28/23 10:14 BMI result Body Mass Index 37.5 Const General: cooperative, healthy appearing, comfortable and no acute distress Orientation/consciousness: patient oriented x3 Neck Neck: Yes normal visual inspection and Yes no JVD Resp Effort & Inspection: normal respiratory effort Auscultation: clear to auscultation bilaterally, no crackles, no rales, no rhonchi and no wheezes Cardio Jugular venous distension: no JVD Rate: regular rate Rhythm: regular rhythm Heart sounds: S1 normal heart sound present, S2 normal heart sound present, no murmurs and no rubs Neuro General: patient oriented x3 Extrem Other: firmness of lower legs, resolved cellulitis left lower extremity Psych Appearance: grossly normal Mental Status: mental status grossly normal Speech and movement: Normal speech and movement present Assessment & Plan Assessment & Plan (1) Abnormal nuclear stress test: Code(s): R94.39 - Abnormal result of other cardiovascular function study Plan: Recent [facility] – [place] admission for noncardiac reason. Noted to have a 14 beat NSVT. Echocardiogram was done showing EF 55%, no regional wall motion abnormalities. As an outpatient she underwent a Holter monitor on 10/17/2023 for 7 days showing sinus rhythm with average heart rate 81, SVE 1.1%, ventricular ectopy 0.26%, one 4 beat NSVT. A nuclear stress test was done on 10/24/2023 which was equivocal for diffuse three-vessel coronary artery disease. She does have multiple cardiac risk factors including hypertension, hyperlipidemia, diabetes, chronic kidney disease, obesity. She also reports a history of rheumatoid arthritis and is on methotrexate. For this reason she says she is not able to take aspirin. She is on pravastatin for lipid reduction and lisinopril/hydrochlorothiazide for blood pressure control. She has no reports of anginal sounding symptoms. Discussed need for cardiac catheterization with her. Procedure, potential finding and risks reviewed including RHEA. She has known chronic kidney disease and last creatinine 1.73. She also has reports of anemia, last hematocrit 28.5. No bleeding issues reported. Will order a diagnostic cardiac catheterization. Will check preprocedure labs including basic metabolic profile, CBC and PT/INRs. Cardiology follow-up will be 2 weeks post procedure. (2) NSVT (nonsustained ventricular tachycardia): Code(s): I47.29 - Other ventricular tachycardia Plan: As above. Labs in-hospital showed potassium 4.0, magnesium 2.2. EF normal (3) CKD stage 3 secondary to diabetes: Code(s): E11.22 - Type 2 diabetes mellitus with diabetic chronic kidney disease; N18.30 - Chronic kidney disease, stage 3 unspecified Plan: As above (4) Iron deficiency anemia: Code(s): D50.9 - Iron deficiency anemia, unspecified Plan: As above (5) Hospital discharge follow-up: Code(s): Z09 - Encounter for follow-up examination after completed treatment for conditions other than malignant neoplasm Plan: As above Plan Time spent on chart review, documentation, interview and assessment Orders: Orders Complete Blood Count Auto Diff Today R94.39 - Abnormal result of other cardiovascular function study Prothrombin Time INR Today R94.39 - Abnormal result of other cardiovascular function study Cardiac Cath LT Diagnostic Today E11.22 - Type 2 diabetes mellitus with diabetic chronic kidney disease, I47.29 - Other ventricular tachycardia, N18.30 - Chronic kidney disease, stage 3 unspecified, R94.39 - Abnormal result of other cardiovascular function study Basic Metabolic Panel Today R94.39 - Abnormal result of other cardiovascular function study Coding Level of Care Code Est Pt Level 4 (55022) Diagnoses Abnormal nuclear stress test R94.39 NSVT (nonsustained ventricular tachycardia) I47.29 CKD stage 3 secondary to diabetes E11.22; N18.30 Iron deficiency anemia D50.9 Hospital discharge follow-up Z09 Time Spent (min) 28
[2023-10-28 10:14] VITALS: BP 144/60; PULSE 95; BMI 37.5
== END 2023-10-28 12:50 | disposition home or self-care (01) ==
PROVIDERS: PCP Internal Medicine; Visit Provider Nurse Practitioner Family
DX: R94.39 Abnormal result of other cardiovascular function study (principal); I47.29 Other ventricular tachycardia; E11.22 Type 2 diabetes mellitus with diabetic chronic kidney disease; N18.30 Chronic kidney disease, stage 3 unspecified; D50.9 Iron deficiency anemia, unspecified; Z09 Encounter for follow-up examination after completed treatment for conditions other than malignant neoplasm
CPT/HCPCS: 99214

== ENCOUNTER → 2023-10-28 10:10 | Outpatient (BNVA) | payer MEDICARE, SELFPAY | PROVIDERS: PCP Internal Medicine; Visit Provider Nurse Practitioner Family | DX: Z09 Encounter for follow-up examination after completed treatment for conditions other than malignant neoplasm (principal); R94.39 Abnormal result of other cardiovascular function study; I47.29 Other ventricular tachycardia; D50.9 Iron deficiency anemia, unspecified; E11.22 Type 2 diabetes mellitus with diabetic chronic kidney disease; N18.30 Chronic kidney disease, stage 3 unspecified | CPT/HCPCS: 99212 ==